=== PATIENT | male | born 1955 | race Caucasian/White ===

== ENCOUNTER 2018-03-13 16:10 | Emergency (ER) | payer BC ==
[2018-03-13 16:36] VITALS: BP 146/100; PULSE 75; TEMP 98.2; BMI 27.8
[2018-03-13] MEDS ORDERED: SODIUM CHLORIDE 0.9% 1000 ML INFUS.BAG IV ONE (16:49)
--- NOTE | 2018-03-13 17:21 | PDOC ---
History of Present Illness - General Chief Complaint: Lightheaded Stated Complaint: S/P DENTAL WORK: LIGHTHEADED Time Seen by Provider: 03/13/18 16:35 History Source: Patient Exam Limitations: No Limitations - History of Present Illness Initial Comments: 03/13/18 17:16 62 yo male smoker her with c/o dental pain facial pain and feeling lightheaded. saw his dentist 4 day ago,was started on zpak for possible apical tooth infection. told to follow up only as needed. pt states he has pressure feeling in his left face. today while taking a shower he felt lightheaded like he was going to faint. drinks 3 coffe/ day. smokes daily. no cp no sob. no vertigo. no other complaints. no leg swelling. Past History - Past Medical History Allergies/Adverse Reactions: Allergies Allergy/AdvReac Type Severity Reaction Status Date / Time No Known Allergies Allergy Verified 03/13/18 16:26 Home Medications: Ambulatory Orders Amoxicillin/Potassium Clav [Augmentin 875-125 Tablet] 1 each PO BID 7 Days #14 tablet 03/13/18 Azithromycin 500 mg PO DAILY 03/13/18 Fluticasone Prop 0.05% Nasal [Flonase -] 1 spray NS DAILY #1 bot 03/13/18 COPD: No Other medical history: RECENT DENTAL PROCEDURE - Suicide/Smoking/Psychosocial Hx Smoking History: Current every day smoker Number of Cigarettes Smoked Daily: 20 Information on smoking cessation initiated: Yes 'Breaking Loose' booklet given: 03/13/18 Hx Alcohol Use: Yes Drug/Substance Use Hx: No Substance Use Type: None Review of Systems - Review of Systems Constitutional: No: Chills, Diaphoresis, Fever HEENTM: Yes: Dental Problems, Other (facial pain). No: Eye Pain Respiratory: Yes: Productive cough. No: Cough Cardiac (ROS): No: Chest Pain, Edema : No: Burning, Dysuria Musculoskeletal: No: Back Pain, Gout Integumentary: No: Bruising, Flushing Neurological: Yes: Other (lightheaded) All Other Systems: Reviewed and Negative *Physical Exam - Vital Signs Last Vital Signs Temp Pulse Resp BP Pulse Ox 98.2 F 75 16 146/100 98 03/13/18 16:22 03/13/18 16:22 03/13/18 16:22 03/13/18 16:22 03/13/18 16:22 - Physical Exam Comments: 03/13/18 17:19 awake alert lungs with faint wheezes at bases bilaterally. heart rrr no mrg abd soft nt nd. ext wwp no edema. HEENT left upper molar with dental freya, no appreciated gum swelling or fluctuance. no appreciated facial swelling. bilat nasal turbinate enlargement. nuero alert oriented x 3. Heart Score/ECG Review #1 General ECG Interpretation: Sinus Rhythm, Normal Rate (68), Normal Intervals, No acute ischemic changes ED Treatment Course - LABORATORY CBC & Chemistry Diagram: 03/13/18 17:20 03/13/18 17:20 - RADIOLOGY Radiology Studies Ordered: Category Date Time Status CHEST PA & LAT [RAD] Stat Radiology 03/13/18 16:49 Taken Medical Decision Making - Medical Decision Making 03/13/18 17:20 62 yo male smoker here with c/o dental pain, concerns for infection, and feeling lightheaded near syncope. differential se of medication, dehydration, anemia, copd, plan labs cbc cxr. will likly change abx to augmentin, recommend smoking cessation and flonase. *DC/Admit/Observation/Transfer Diagnosis at time of Disposition: Dental infection - Discharge Dispostion Condition at time of disposition: Improved - Prescriptions Prescriptions: Amoxicillin/Potassium Clav [Augmentin 875-125 Tablet] 1 each PO BID 7 Days #14 tablet Fluticasone Prop 0.05% Nasal [Flonase -] 1 spray NS DAILY #1 bot - Referrals Referrals: Manpreet Quinn [Primary Care Provider] - - Patient Instructions Additional Instructions: you should start taking augmentin 875 mg twice daily. use flonase one spray each nostril daily. follow up with your dentist. you should also quit smoking. return for any problem or concerns. drink plenty of liquids. - Post Discharge Activity
[2018-03-13 17:59] LABS: BASO % 0.2 % (0-2.0); EOS % 1.1 % (0-4.5); HEMATOCRIT 45.5 % (35.4-49); HEMOGLOBIN 16.1 GM/dl (11.7-16.9); LYMPH % 18.2 % (8-40); MCH 33.4 pg (25.7-33.7); MCHC 35.3 g/dl (32.0-35.9); MEAN CELL VOLUME 94.6 fl (80-96); MEAN PLT VOLUME 9.6 fl (7.5-11.1); MONO % 4.6 % (3.8-10.2); NEUT % 75.9 % (42.8-82.8); PLATELET COUNT 175 K/MM3 (134-434); RBC 4.81 M/mm3 (4.00-5.60); RDW 12.3 % (11.9-15.9); WHITE BLOOD COUNT 7.5 K/mm3 (4.0-10.8)
[2018-03-13 18:17] LABS: ALBUMIN 4.2 g/dl (3.5-5.0); ALK PHOS 78 U/L (32-92); ANION GAP 8 MMOL/L (8-16); BILIRUBIN,TOTAL 0.8 mg/dl (0.2-1.0); BLOOD UREA NITROGEN 16 mg/dl (7-18); CHLORIDE 105 mmol/L (98-107); CO2 24 mmol/L (22-28); GLUCOSE,RANDOM 95 mg/dl (74-106); POTASSIUM 3.7 mmol/L (3.5-5.1); SGOT/AST 14 U/L (10-42); SGPT/ALT 16 U/L (10-40); SODIUM 137 mmol/L (136-145); TOT PROT 6.8 g/dl (6.4-8.3)
[2018-03-13] MEDS ORDERED: AMOX TR/POT CLAV 875MG/125MG TABLETS (FP) ONE (18:40)
[2018-03-13] MEDS ORDERED: AMOX TR/POT CLAV 875MG/125MG TABLETS (FP) PO ONE (18:40)
--- NOTE | 2018-03-14 21:32 | EKG ---
Test Reason : Blood Pressure : / mmHG Vent. Rate : 068 BPM Atrial Rate : 068 BPM P-R Int : 122 ms QRS Dur : 112 ms QT Int : 414 ms P-R-T Axes : 083 062 069 degrees QTc Int : 440 ms NORMAL SINUS RHYTHM WITH SINUS ARRHYTHMIA NORMAL ECG NO PREVIOUS ECGS AVAILABLE Confirmed by RAJAN ALEXIS, SWATI ([id number]) on 03/14/2018 9:32:25 PM Referred By: PASTOR Confirmed By:SWATI TOLENTINO MD
== END 2018-03-13 18:44 | disposition home or self-care (01) ==
LOC: FER 16:10 → SUPCPDRO 16:10 → FER 18:39
PROC: 3E0337Z Introduction of Electrolytic and Water Balance Substance into Peripheral Vein, Percutaneous Approach (ICD-10-PCS; principal; 2018-03-13)
DX: K04.7 Periapical abscess without sinus (principal); F17.210 Nicotine dependence, cigarettes, uncomplicated
CPT/HCPCS: 36415; 71046-TC-FY; 80053; 84484; 85025; 93005; 99283-25; J7030

== ENCOUNTER 2019-01-22 20:22 | Emergency (ER) | payer BC ==
[2019-01-22 20:37] VITALS: BP 167/100; PULSE 78; TEMP 98.2; BMI 27.8
--- NOTE | 2019-01-22 22:26 | PDOC ---
History of Present Illness - General Chief Complaint: Blood Pressure Problem Stated Complaint: HYPERTENSION Time Seen by Provider: 01/22/19 21:31 History Source: Patient Exam Limitations: No Limitations - History of Present Illness Initial Comments: 01/22/19 22:19 63 yo M with a hx of HTN presents to the emergency department with sore throat with burning sensation in the chest for 3 days. Per the patient, he has had GERD in the past with a sour taste throughout the weekend. Endorses no diet change, but endorses multiple coffee cups and beers consumed per day. He states the burning sensation is new compared to his previous GERD episodes which normally localize to the throat. The patient endorses having clammy skin with diaphoresis today but denies radiation of chest pain and denies worsening with exertion. Last cardiac work up 13 years ago. Denies the following: fever, chills , SOB, nausea, vomiting, abdominal pain, dysuria, hematuria, and back pain. Allergies: NKDA Social: Endorses tobacco smoking and alcohol consumption. Meds: Lisinopril Familial hx: ACS both parents in their 70s. Past History - Past Medical History Allergies/Adverse Reactions: Allergies Allergy/AdvReac Type Severity Reaction Status Date / Time No Known Allergies Allergy Verified 01/22/19 20:32 Home Medications: Ambulatory Orders Amoxicillin/Potassium Clav [Augmentin 875-125 Tablet] 1 each PO BID 7 Days #14 tablet 03/13/18 Azithromycin [Zithromax] 500 mg PO DAILY 03/13/18 Fluticasone Prop 0.05% Nasal [Flonase -] 1 spray NS DAILY #1 bot 03/13/18 COPD: No - Suicide/Smoking/Psychosocial Hx Smoking History: Current every day smoker Have you smoked in the past 12 months: Yes Number of Cigarettes Smoked Daily: 20 Information on smoking cessation initiated: Yes 'Breaking Loose' booklet given: 03/13/18 Hx Alcohol Use: Yes Drug/Substance Use Hx: No Substance Use Type: None *Physical Exam - Vital Signs Last Vital Signs Temp Pulse Resp BP Pulse Ox 98.2 F 78 18 167/100 100 01/22/19 20:32 01/22/19 20:32 01/22/19 20:32 01/22/19 20:32 01/22/19 20:32 - Physical Exam Comments: 01/22/19 22:26 within normall imits. ED Treatment Course - LABORATORY CBC & Chemistry Diagram: 01/22/19 22:38 01/22/19 22:38 *DC/Admit/Observation/Transfer Diagnosis at time of Disposition: Throat pain, Chest pain - Discharge Dispostion Disposition: HOME Decision to Admit order: No - Referrals - Patient Instructions Printed Discharge Instructions: DI for High Blood Pressure, DI for Atypical Chest Pain, Heartburn -- Overview, GERD Diet Additional Instructions: You were seen in the emergency department for the evaluation of your chest and throat burning sensation. Please return to the emergency department if you have worsening symptoms. Thank you. - Post Discharge Activity Forms/Work/School Notes: Back to Work
[2019-01-22] MEDS ORDERED: SODIUM CHLORIDE 1,000 ML IV STA (22:27)
[2019-01-22] MEDS ORDERED: FAMOTIDINE 20 MG/50 ML IVPB 20 MG/50 ML MG IVPB ONE ×2 (22:27→22:31)
[2019-01-22] MEDS ORDERED: MAG HYDROX/AL HYDROX/SIMETH -MYLANTA- ORAL SUSPENSION PO ONE (22:27)
[2019-01-22] MEDS ORDERED: ACETAMINOPHEN 1000 MG/100 ML VIAL (NON FORMULARY) IVPB ONE (22:27)
[2019-01-22] MEDS ORDERED: MAG HYDROX/AL HYDROX/SIMETH 30 ML UNIT-DOSE CUP ONE (22:31)
[2019-01-22] MEDS ORDERED: ACETAMINOPHEN INJECTION 100 ML IVPB ONE (22:31)
[2019-01-22 22:46] LABS: BASO % 0.4 % (0-2.0); EOS % 2.4 % (0-4.5); HEMOGLOBIN 15.6 GM/dL (11.7-16.9); LYMPH % 19.5 % (8-40); MCH 32.4 pg (25.7-33.7); MCHC 34.7 g/dl (32.0-35.9); MEAN CELL VOLUME 93.6 fl (80-96); MEAN PLT VOLUME 10.2 fl (7.5-11.1); MONO % 7.1 % (3.8-10.2); NEUT % 70.6 % (42.8-82.8); PLATELET COUNT 153 K/MM3 (134-434); RBC 4.81 M/mm3 (4.00-5.60); RDW 13.4 % (11.9-15.9); WHITE BLOOD COUNT 7.2 K/mm3 (4.0-10.0)
[2019-01-22 23:30] LABS: ALBUMIN 3.5 g/dl (3.4-5.0); BILIRUBIN,TOTAL 0.4 mg/dL (0.2-1); BLOOD UREA NITROGEN 19.5 mg/dL (7-18); CALCIUM 8.5 mg/dL (8.5-10.1); CREATININE 1.1 mg/dL (0.55-1.3); LIPASE 219 U/L (73-393); POTASSIUM 4.2 mmol/L (3.5-5.1); TOT PROT 6.6 g/dl (6.4-8.2)
--- NOTE | 2019-01-23 00:04 | PDOC ---
Documentation entered by Lance Murcia SCRIBE, acting as scribe for Marguerite Beltre MD. Marguerite Beltre MD: This documentation has been prepared by the [employer] [employer], SCRIBE, under my direction and personally reviewed by me in its entirety. I confirm that the documentation accurately reflects all work, treatment, procedures, and medical decision making performed by me. Attending Attestation - Resident Resident Name: Ned Boykin - ED Attending Attestation I have performed the following: I have examined & evaluated the patient, The case was reviewed & discussed with the resident, I agree w/resident's findings & plan, Exceptions are as noted - HPI HPI: 01/22/19 23:15 The patient is a 63 year old male with a significant PMH of HTN who presents to the emergency department for sore throat and chest burning x3 days. The patient states he endorses associated clammy skin with diaphoresis. Patient states these symptoms feel similar to his previous GERD, however, the burning sensation in his chest is new. Patient states he consumes multiple coffee cups and beers per day. Patient denies any new diet changes. The patient denies chest pain, shortness of breath, headache and dizziness. Denies fever, chills, cough, nausea, vomiting, diarrhea and constipation. Denies dysuria, frequency, urgency and hematuria. Allergies: NKDA Social history: Endorses tobacco smoking and alcohol consumption. - Physicial Exam PE: 01/23/19 00:01 63-year-old male in no acute distress. Head normocephalic/atraumatic. Oropharynx exam, no exudates, uvula midline, no edema, mild erythema. Neck supple Lungs clear to auscultation. CVS regular rate and rhythm S1, S2 Abdomen soft, nontender. No flank pain. Skin warm and dry. Neuro alert and oriented 3, ambulatory Psych appropriate - Medical Decision Making 01/23/19 00:02 63 male came in because he was concerned that he was having a heart attack. he' s had 3 days of chest pain and today had burning in his throat and some mild diaphoresis, pressure and systolic blood pressure is 180 and became very worried past medical history of GERD Repeat blood atbmmgsg-[id number]-[id number] to 155/99 67 bpm, no acute ST elevations or depressions first troponin is Negative 01/23/19 00:07 cxr normal mediastinum,no consolidation, no effusions, no infiltrates plan second trop @ 1:30, if negative will d/c home
--- NOTE | 2019-01-23 09:17 | EKG ---
Test Reason : Blood Pressure : / mmHG Vent. Rate : 067 BPM Atrial Rate : 067 BPM P-R Int : 120 ms QRS Dur : 098 ms QT Int : 408 ms P-R-T Axes : 053 019 048 degrees QTc Int : 431 ms NORMAL SINUS RHYTHM POSSIBLE LEFT ATRIAL ENLARGEMENT BORDERLINE ECG WHEN COMPARED WITH ECG OF 13-MAR-2018 17:10, NO SIGNIFICANT CHANGE WAS FOUND Confirmed by CORINA ALEXIS, LINUS ([id number]) on 01/23/2019 9:17:26 AM Referred By: Confirmed By:LINUS ARRIAGA MD
== END 2019-01-23 02:28 | disposition home or self-care (01) ==
LOC: JER 20:22
PROC: 3E033GC Introduction of Other Therapeutic Substance into Peripheral Vein, Percutaneous Approach (ICD-10-PCS; principal; 2019-01-22)
PROC: 3E033NZ Introduction of Analgesics, Hypnotics, Sedatives into Peripheral Vein, Percutaneous Approach (ICD-10-PCS; 2019-01-22)
DX: R12 Heartburn (principal); K21.9 Gastro-esophageal reflux disease without esophagitis
CPT/HCPCS: 36415; 71045-TC-FY; 80053; 82550; 83690; 84484; 85025; 93005; 93010; 99283-25; J0131; J7030

== ENCOUNTER 2019-01-28 07:46 | Emergency (ER) | payer BC, OTHER ==
[2019-01-28 08:01] VITALS: BP 137/89; PULSE 81; TEMP 98; BMI 28.0
--- NOTE | 2019-01-28 08:43 | PDOC ---
History of Present Illness - General Chief Complaint: Head/Neck problem Stated Complaint: LEFT ARM TINGLING/NECK Time Seen by Provider: 01/28/19 08:16 - History of Present Illness Initial Comments: 01/28/19 08:39 CHIEF COMPLAINT: arm tingling HISTORY OF PRESENT ILLNESS: 63 yo M with hx of HTN presents to [facility] with left arm tingling and "not feeling right" s/p fall from ladder 6 days ago. Patient reports that he was seen in this ED one week ago for concerns of chest pain and diaphoresis and "didn't want to come in again right away." He states since the incident he has been "not feeling right" and that his left arm and b/ l legs have been feeling "tingling", which worsened this morning when he woke up. He denies any chest pain, dyspnea, and SOB. No recent travel or sick contacts. PAST MEDICAL HISTORY: Denies past medical history FAMILY HISTORY: Denies SOCIAL HISTORY: Current daily smoker. Denies tobacco, alcohol, illicit drug use. SURGICAL HISTORY: Denies ALLERGIES: No known drug allergies REVIEW OF SYSTEMS General/Constitutional: Denies fever or chills. Denies weakness. HEENT: Denies change in vision. Denies ear pain or discharge. Denies sore throat. Cardiovascular: Denies chest pain or shortness of breath. Respiratory: Denies cough, wheezing, or hemoptysis. Gastrointestinal: Denies nausea, vomiting, diarrhea or constipation. Denies rectal bleeding. Genitourinary: Denies dysuria, frequency, or change in urination. Musculoskeletal: Tingling to left arm and b/l legs. Denies joint or muscle swelling or pain. Denies neck or back pain. Skin: Denies rash or easy bruising. Neurologic: Denies headache, vertigo, loss of consciousness, or loss of sensation. PHYSICAL EXAM General Appearance: Well-appearing, appropriately dressed. No apparent distress , no intoxication. HEENT: EOMI, PERRLA, normal ENT inspection, normal voice, TMs normal, pharynx normal. No conjunctival pallor. No photophobia, scleral icterus. Neck: Supple. Trachea midline. No tenderness, rigidity, carotid bruit, stridor , lymphadenopathy, or thyromegaly. Respiratory/Chest: Lungs CTAB. No shortness of breath, chest tenderness, respiratory distress, accessory muscle use. No crackles, rales, rhonchi, stridor , wheezing, dullness Cardiovascular: RRR. S1, S2. No JVD, murmur, bradycardia, tachycardia. Vascular Pulses: Dorsalis-Pedis (R): 2+, Dorsalis-Pedis (L): 2+ Gastrointestinal/Abdominal: Normal bowel sounds. Abdomen soft, non-distended. No tenderness or rebound tenderness. No organomegaly, pulsatile mass, guarding , hernia, hepatomegaly, splenomegaly. Lymphatic: No adenopathy, tenderness. Musculoskeletal/Extremities: Normal inspection. FROM of all extremities, normal capillary refill. Pelvis Stable. No CVA tenderness. No tenderness to extremities, pedal edema, swelling, erythema or deformity. Integumentary: Appropriate color, dry, warm. No cyanosis, erythema, jaundice or rash Neurologic: library circulation assistant II-XII intact. Fully oriented, alert. Appropriate mood/affect. Motor strength 5/5. No appreciable EOM palsy, facial droop or sensory deficit. A&Ox3, follow commands, respond appropriately CN2-12: conjugate gaze, pupil round, equal and reactive to light. Visual field full to confrontation. EOMI without nystagmus, pursuit is smooth without saccade. Facial sensation and muscle activation intact bilaterally. Hearing intact bilaterally. Palate elevate symmetrically. Shoulder shrug and neck turn full strength. Tongue protrude midline. Motor: UE and LE strength 5/5 throughout bilaterally. Muscle tone and bulk normal. Cerebellar: Rapid-alternating movement with regular rhythm without bradykinesia. Gkkrwa-rd-nfqg and xxcz-oo-vxwl intact bilaterally without dysmetria or overshoot. Gait narrow based. No shuffling. Full hip flexion and knee flexion. Negative Romberg No involuntary movement noted. No pronator drift. No clonus. Past History - Past Medical History Allergies/Adverse Reactions: Allergies Allergy/AdvReac Type Severity Reaction Status Date / Time No Known Allergies Allergy Verified 01/28/19 08:01 Home Medications: Ambulatory Orders Azithromycin [Zithromax] 500 mg PO DAILY 03/13/18 Fluticasone Prop 0.05% Nasal [Flonase -] 1 spray NS DAILY #1 bot 03/13/18 Cyclobenzaprine HCl 10 mg PO HS #10 tablet 01/28/19 Diclofenac Sodium [Voltaren -] 75 mg PO BID #14 tablet. 01/28/19 COPD: No - Suicide/Smoking/Psychosocial Hx Smoking History: Current every day smoker Have you smoked in the past 12 months: Yes Number of Cigarettes Smoked Daily: 20 Information on smoking cessation initiated: No 'Breaking Loose' booklet given: 03/13/18 Hx Alcohol Use: Yes Drug/Substance Use Hx: No Substance Use Type: None *Physical Exam - Vital Signs Last Vital Signs Temp Pulse Resp BP Pulse Ox 98 F 81 18 137/89 99 01/28/19 07:59 01/28/19 07:59 01/28/19 07:59 01/28/19 07:59 01/28/19 07:59 Medical Decision Making - Medical Decision Making 01/28/19 09:28 63 yo M with hx of HTN presents to [email or web address] with left arm tingling and "not feeling right" s/p fall from ladder 6 days ago exam grossly unremarkable. -ekg -head ct ekg NSR, unchanged from prior of 1 week ago. *DC/Admit/Observation/Transfer Diagnosis at time of Disposition: Neuropathy - Discharge Dispostion Disposition: HOME Condition at time of disposition: Stable Decision to Admit order: No - Prescriptions Prescriptions: Cyclobenzaprine HCl 10 mg PO HS #10 tablet Diclofenac Sodium [Voltaren -] 75 mg PO BID #14 tablet.dr - Referrals Referrals: Manpreet Quinn [Primary Care Provider] - Ziggy Bronson MD [Staff Physician] - - Patient Instructions Printed Discharge Instructions: Neuropathic Pain Additional Instructions: Please take medications as prescribed. Follow up with neurology for further evaluation of your symptoms. If you develop any weakness, difficulty speaking, changes in vision, new headache, or any new or worsening symptoms, please return to the ER immediately. - Post Discharge Activity Forms/Work/School Notes: Back to Work
[2019-01-28] MEDS ORDERED: KETOROLAC TROMETHAMINE 30 MG/1 ML VIAL IM ONE (10:04)
[2019-01-28] MEDS ORDERED: KETOROLAC TROMETHAMINE 30 MG/1 ML VIAL ONE (10:15)
--- NOTE | 2019-01-29 16:57 | EKG ---
Test Reason : Blood Pressure : / mmHG Vent. Rate : 073 BPM Atrial Rate : 073 BPM P-R Int : 126 ms QRS Dur : 098 ms QT Int : 380 ms P-R-T Axes : 042 011 063 degrees QTc Int : 418 ms NORMAL SINUS RHYTHM POSSIBLE LEFT ATRIAL ENLARGEMENT BORDERLINE ECG WHEN COMPARED WITH ECG OF 22-JAN-2019 23:30, NO SIGNIFICANT CHANGE WAS FOUND Confirmed by NIGEL PATEL MD ([id number]) on 01/29/2019 4:57:18 PM Referred By: Confirmed By:NIGEL PATEL MD
== END 2019-01-28 10:57 | disposition home or self-care (01) ==
LOC: JER 07:46
PROC: 3E0233Z Introduction of Anti-inflammatory into Muscle, Percutaneous Approach (ICD-10-PCS; principal; 2019-01-28)
DX: G62.9 Polyneuropathy, unspecified (principal); I10 Essential (primary) hypertension
CPT/HCPCS: 70450-TC; 93005; 93010; 99282-25

== ENCOUNTER 2019-03-03 14:43 | Emergency (ER) | payer BC ==
[2019-03-03 14:54] VITALS: TEMP 98.4; BMI 27.8
--- NOTE | 2019-03-03 14:54 | PDOC ---
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 The patient reports he took an asa 81 at 1100 because he was feelling a little weak, but he has been feeling weak for the past 6months. He denies any current symptoms, denies fever. ROS GENERAL/CONSTITUTIONAL: No fever or chills. No weakness. HEAD, EYES, EARS, NOSE AND THROAT: No change in vision. No ear pain or discharge. No sore throat. CARDIOVASCULAR: + chest pain or shortness of breath RESPIRATORY: No cough, wheezing, or hemoptysis. GASTROINTESTINAL: + nausea, vomiting, No diarrhea or constipation. GENITOURINARY: No dysuria, frequency, or change in urination. MUSCULOSKELETAL: No joint or muscle swelling or pain. No neck or back pain. SKIN: No rash PE GENERAL: Awake, alert, and fully oriented, in no acute distress HEAD: No signs of trauma, normocephalic, atraumatic EYES: EOMI, sclera anicteric, conjunctiva clear ENT: oropharynx clear without exudates. Moist mucosa NECK: Normal ROM, supple LUNGS: No distress, speaks full sentences, diffuse expiratory wheeze HEART: Regular rate and rhythm, normal S1 and S2, no murmurs, rubs or gallops, peripheral pulses normal and equal bilaterally. ABDOMEN: Soft, nontender, normoactive bowel sounds. No guarding, no rebound. No masses EXTREMITIES : Normal inspection, Normal range of motion, no edema. No clubbing or cyanosis. NEUROLOGICAL: Cranial nerves II through XII grossly intact. Normal speech, no focal sensorimotor deficits SKIN: Warm, Dry, normal turgor, no rashes or lesions noted MDM DDX including but not limited to: r/o acs consider gerd W/U: - cardiac work up [place]: - ED Course: ekg: nsr at 77bpm labs wnl patient with concerning story and does not feel at baseline plan to tele obs Alie Miguel, PGY2 Emergency Medicine Past History - Past Medical History Allergies/Adverse Reactions: Allergies Allergy/AdvReac Type Severity Reaction Status Date / Time No Known Allergies Allergy Verified 03/03/19 14:46 Home Medications: Ambulatory Orders NK [No Known Home Medication] 03/03/19 COPD: No Other medical history: NECK ARTHRITIS - Psycho Social/Smoking Cessation Hx Smoking History: Current every day smoker Have you smoked in the past 12 months: Yes Number of Cigarettes Smoked Daily: 10 Information on smoking cessation initiated: Yes 'Breaking Loose' booklet given: 03/13/18 Hx Alcohol Use: (nightly) Drug/Substance Use Hx: No Substance Use Type: None *Physical Exam - Vital Signs Last Vital Signs Temp Pulse Resp BP Pulse Ox 98.4 F 78 18 158/87 96 03/03/19 14:43 03/03/19 14:43 03/03/19 14:43 03/03/19 14:43 03/03/19 14:43 ED Treatment Course - LABORATORY CBC & Chemistry Diagram: 03/03/19 15:30 03/03/19 15:30 Discharge - Discharge Information Problems reviewed: Yes Clinical Impression/Diagnosis: Chest pain Condition: Guarded Disposition: HOME - Admission No - Follow up/Referral - Patient Discharge Instructions Patient Printed Discharge Instructions: DI for Chest Pain Additional Instructions: You came to the ED for chest pain, your labwork was initially unremarkable. It was advised that you be admitted for observation and futher workup, however you have refused this care. The risks of leaving AMA are heart attack, cardiac arrest, respiratory distress , stroke, or . You express understanding of these risks and exhibit full capacity however you still desire to leave AMA> - Post Discharge Activity
--- NOTE | 2019-03-03 14:56 | PDOC ---
Attending Attestation - Resident Resident Name: Alie Miguel - HPI HPI: 03/03/19 16:16 Pt presents to the ED complaining of chest pressure that occurred while working today. 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 Symptoms lasted for 15-20 minutes. Patient is now symptom free. States that he has been experiencing vague "weakness" for the last 6 months. - Physicial Exam PE: 03/03/19 16:22 Agree with resident exam. patient is alert and oriented x 3 and in no acute distress. Lungs are clear. Heart regular rate and rhythm without murmurs. - Medical Decision Making 03/03/19 16:34 pt presents to the ED complaining of chest pressure and diaphoresis that began while he was at work. EKG is normal, HEART Score is 3, but given his age and the nature of his symptoms, I have offered him admission. Patient has travel plans in the morning and is contemplating signing out against medical advice. Will reasses when cardiac enzymes are back. 03/03/19 16:34
[2019-03-03] MEDS ORDERED: ASPIRIN 81 MG CHEWABLE TABLETS PO ONE (15:46)
[2019-03-03] MEDS ORDERED: ASPIRIN 81 MG CHEWABLE TABLETS ONE (15:57)
[2019-03-03 16:27] LABS: ALBUMIN 4.1 g/dl (3.4-5.0); BASO % 0.3 % (0-2.0); BILIRUBIN,TOTAL 0.5 mg/dl (0.2-1); CALCIUM 8.7 mg/dl (8.5-10); CREATININE 1.1 mg/dl (0.55-1.3); EOS % 1.3 % (0-4.5); HEMATOCRIT 46.5 % (35.4-49); HEMOGLOBIN 15.6 GM/dl (11.7-16.9); LYMPH % 16.2 % (8-40); MCH 32.3 pg (25.7-33.7); MCHC 33.5 g/dl (32.0-35.9); MEAN CELL VOLUME 96.4 fl (80-96); MEAN PLT VOLUME 9.6 fl (7.5-11.1); MONO % 6.4 % (3.8-10.2); NEUT % 75.8 % (42.8-82.8); PLATELET COUNT 168 K/MM3 (134-434); RBC 4.82 M/mm3 (4.00-5.60); RDW 12.7 % (11.9-15.9); TOT PROT 6.8 g/dl (6.4-8.2); WHITE BLOOD COUNT 7.2 K/mm3 (4.0-10.8)
[2019-03-03 16:32] LABS: INR 1.02 (0.82-1.09); PROTHROMBIN TIME (PATIENT) 11.4 SEC (10.2-13.0)
[2019-03-03 18:31] VITALS: BP 139/91; PULSE 83
--- NOTE | 2019-03-05 08:38 | EKG ---
Test Reason : Blood Pressure : / mmHG Vent. Rate : 077 BPM Atrial Rate : 077 BPM P-R Int : 126 ms QRS Dur : 102 ms QT Int : 390 ms P-R-T Axes : 060 019 061 degrees QTc Int : 441 ms NORMAL SINUS RHYTHM NORMAL ECG WHEN COMPARED WITH ECG OF 28-JAN-2019 09:03, NO SIGNIFICANT CHANGE WAS FOUND Confirmed by Aurea Webb ([id number]) on 03/05/2019 8:38:26 AM Referred By: MD [place] Confirmed By:Aurea Webb
== END 2019-03-03 18:15 | disposition home or self-care (01) ==
LOC: FER 14:43
DX: R07.89 Other chest pain (principal); I10 Essential (primary) hypertension; F17.210 Nicotine dependence, cigarettes, uncomplicated
CPT/HCPCS: 36415; 71045-TC-FY; 80053; 83880; 84484; 85025; 85610; 85730; 93005; 99285-25

== ENCOUNTER 2019-03-07 09:38 | Inpatient (IN) | payer BC, OTHER ==
[2019-03-07 09:52] VITALS: BMI 27.5
--- NOTE | 2019-03-07 11:19 | PDOC ---
History of Present Illness - General Chief Complaint: Chest Pain Stated Complaint: CHEST TIGHTNESS Time Seen by Provider: 03/07/19 10:56 - History of Present Illness Initial Comments: 03/07/19 11:18 This is a 63 year old male with no significant PMH. He presented to the ER with complaints of substernal chest tightness since 7:30AM this morning. The pain was sudden in onset, rated 4/10 in intensity, constant in nature, non-radiating , and alleviated partially by 2 baby aspirins taken around 9AM this morning. He endorses associated diaphoresis, tingling in hands and feet, and fatigue. He denies any fevers, chills, headaches, SOB, coughing, nausea, vomiting, diarrhea , constipation, dysuria, hematuria, or polyuria. He has had 4 similar episodes in the past 5 months. The last episode was 3 days ago. He was seen at [facility], and after a normal EKG, Trops, and CXR he was advised to be admitted for an Echo. The Echo could not be done until Wednesday, and the patient left since he had plans to go to the [facility] with his friends. He has no other past medical history, and is not on any medication at home. He smokes 1ppd, drink 3-4 beers per day, and does not use any drugs. His brother ahd an CO at the age of 50, and both his parents had MIs in their 70s. Past History - Past Medical History Allergies/Adverse Reactions: Allergies Allergy/AdvReac Type Severity Reaction Status Date / Time No Known Allergies Allergy Verified 03/07/19 09:48 Home Medications: Ambulatory Orders NK [No Known Home Medication] 03/03/19 COPD: No - Psycho Social/Smoking Cessation Hx Smoking History: Current every day smoker Have you smoked in the past 12 months: Yes Number of Cigarettes Smoked Daily: 10 Information on smoking cessation initiated: No 'Breaking Loose' booklet given: 03/03/19 Hx Alcohol Use: Yes Drug/Substance Use Hx: No Substance Use Type: None Review of Systems - Review of Systems Comments:: 03/07/19 14:04 Constitutional: Generalized fatigue, no fevers, chills, weakness [employer]: Tingling in hands and feet, no headaches, dizziness, visual changes, motor weakness, sensory deficits Respiratory: Mild SOB, cough, wheezing CVS: Chest pain, no palpitations, light headedness GI: No diarrhea, mild abdominal pain and nausea, constipation ILYA: No dysuria, hematuria, polyruia MSK: No calf pain, tenderness, joint pain *Physical Exam - Vital Signs Last Vital Signs Temp Pulse Resp BP Pulse Ox 98.7 F 82 18 171/107 H 97 03/07/19 09:50 03/07/19 09:50 03/07/19 09:50 03/07/19 09:50 03/07/19 09:50 - Physical Exam Comments: 03/07/19 14:06 General: AOx3, responsive, cooperative Oropharynx:Normal oral mucosa, no lesions noted Eyes: Normal sclera, SHIRLEY, EOM intact Lungs: B/L Clear Heart: Regular rate, regular rhythm, no murmurs rubs or gallops appreciated Abdomen: Soft, no tenderness, non-distended, normoactive bowel sounds, no rebound tenderness Neuro: Motor 5/5 upper and 5/5 lower extremities B/L, sensations intact B/L, CN II-XII intact, no tremors in hands, arms, legs Extremities: No pitting edema, pulses 2+ B/L Heart Score/ECG Review - History History: Moderately suspicious - Electrocardiogram EKG: Normal - Age Age: 45-65 - Risk Factors Risk Factors Heart Score: Yes Hx Hypertension, Yes Smoking History, Yes Positive family hx of cardiac disease Based on the list above the patient has:: >/=3 risk factors or Hx atherosclerotic disease - Troponin Troponin: </= normal limit - Score Heart Score - Total: 4 ED Treatment Course - LABORATORY CBC & Chemistry Diagram: 03/07/19 11:30 03/07/19 11:30 Medical Decision Making - Medical Decision Making 03/07/19 14:08 - Will r/o ACS - CBC/CMP - Trops - EKG - CXR - Nicotine patch 03/07/19 15:13 - Trops negative x1 - EKG NSR RRR - Will admit Tele Obs due to repeated episodes, may need stress test/echo - Nicotine patch ordered Discharge - Discharge Information Problems reviewed: Yes Clinical Impression/Diagnosis: Chest pain - Admission Yes - Follow up/Referral - Patient Discharge Instructions - Post Discharge Activity
[2019-03-07 11:37] LABS: BASO % 0.5 % (0-2.0); EOS % 1.3 % (0-4.5); HEMATOCRIT 47.3 % (35.4-49); HEMOGLOBIN 16.4 GM/dL (11.7-16.9); LYMPH % 20.1 % (8-40); MCH 32.5 pg (25.7-33.7); MCHC 34.7 g/dl (32.0-35.9); MEAN CELL VOLUME 93.8 fl (80-96); MEAN PLT VOLUME 9.3 fl (7.5-11.1); MONO % 7.2 % (3.8-10.2); NEUT % 70.9 % (42.8-82.8); PLATELET COUNT 161 K/MM3 (134-434); RBC 5.05 M/mm3 (4.00-5.60); RDW 12.9 % (11.9-15.9); WHITE BLOOD COUNT 5.3 K/mm3 (4.0-10.0)
[2019-03-07 12:04] LABS: ALBUMIN 3.8 g/dl (3.4-5.0); BILIRUBIN,TOTAL 0.6 mg/dL (0.2-1); BLOOD UREA NITROGEN 17.8 mg/dL (7-18); CALCIUM 9.1 mg/dL (8.5-10.1); POTASSIUM 4.2 mmol/L (3.5-5.1); TOT PROT 6.8 g/dl (6.4-8.2)
--- NOTE | 2019-03-07 12:09 | PDOC ---
Attending Attestation - Resident Resident Name: Jp Seals - ED Attending Attestation I have performed the following: I have examined & evaluated the patient, The case was reviewed & discussed with the resident, I agree w/resident's findings & plan - HPI HPI: 03/07/19 12:01 63-year-old male without diagnosed past medical history, extensive smoking history presents to the emergency department for evaluation of chest pain with episode of diaphoresis this morning. Patient has been having intermittent chest tightness and occasional shortness of breath over the last few months, sought evaluation at [facility] on 03/03 and recommended admission but patient decided to leave, so was scheduled to see his PCP and a coal carrier this week but awoke this morning with 2 episodes overnight of chest tightness with diaphoresis, so he presents for evaluation. At baseline, exercise tolerance varies with occasional dyspnea on exertion, no cough or fevers or chills. reports negative stress test about 12y ago, never had cath. - Physicial Exam PE: 03/07/19 12:09 Vitals as noted, blood pressure elevated at triage Patient is otherwise well-appearing and conversant with full sentences, no acute distress Heart is regular without audible murmur Left base/left mid lung field decreased breath sounds and rhonchi, otherwise clear without wheezing or crackles Abdomen benign No edema - Medical Decision Making 03/07/19 12:09 63-year-old male smoking history presents with intermittent episodes of chest tightness and some dyspnea on exertion in the past, recent visit in the ED recommending admission but declines, resents now for recurrent symptoms. Presentation most concerning for ACS, possible primary pulmonary etiology given smoking history. Labs, EKG Chest x-ray Aspirin Telemetry admission for cardiac evaluation and monitoring Heart Score/ECG Review #1 ECG reviewed & interpreted by me at: 09:33 General ECG Interpretation: Sinus Rhythm, Normal Rate (67), Normal Intervals ( qtc 407), No acute ischemic changes Compared to previous ECG there are: No significant change (c/w 03/03/19)
[2019-03-07 12:37] LABS: INR 0.96 (0.83-1.09); PROTHROMBIN TIME (PATIENT) 11.3 SEC (9.7-13.0)
[2019-03-07 12:39] LABS: ACTIVATED PTT 32.5 SECONDS (25.2-36.5)
--- NOTE | 2019-03-07 12:50 | EKG ---
Test Reason : Blood Pressure : / mmHG Vent. Rate : 067 BPM Atrial Rate : 067 BPM P-R Int : 116 ms QRS Dur : 098 ms QT Int : 386 ms P-R-T Axes : 035 040 071 degrees QTc Int : 407 ms NORMAL SINUS RHYTHM NORMAL ECG WHEN COMPARED WITH ECG OF 03-MAR-2019 14:55, NO SIGNIFICANT CHANGE WAS FOUND Confirmed by Rafa Cooley MD ([id number]) on 03/07/2019 12:50:07 PM Referred By: Confirmed By:Rafa Cooley MD
[2019-03-07] MEDS ORDERED: ACETAMINOPHEN 325 MG TABLET (FP) PO PRN ×2 (13:54→14:12)
--- NOTE | 2019-03-07 14:06 | HP ---
CHIEF COMPLAINT: chest pain PCP: Dr. Kai Case HISTORY OF PRESENT ILLNESS: Patient is a 63 y/o male with no past medical history who presents for chest tightness. Patient reports hes been having this pain on and off for five months. If hes working he states he doesn't notice it. He had the pain on wednesday at [facility] but did not want to stay until wednesday for an echo. Patient reports he had an appointment with a roof fitter for today but had the chest tightness again this morning. He took two baby aspirin and then pain resolved. he states it lasted about 30 minutes. He also felt diaphoretic during the tightness. He does have numbness and tingling in his left arm but it doesnt always associate with chest pain. He has a history of hurting his neck in the past and has had arm numbness and tingling on and off. Patient had a stress test 12 years ago that was negative. Patient denies headache, nausea, vomiting, or shortness of breath. ER course was notable for: (1) (2) (3) Recent Travel: denies PAST MEDICAL HISTORY: denies PAST SURGICAL HISTORY: surgery on his R leg for vein with non healing ulcer Social History: Smokin pack a day for "years" Alcohol: 3-4 beers a day Drugs: denies Family hx; brother with IL, both parents with stents Allergies No Known Allergies Allergy (Verified 03/07/19 09:48) HOME MEDICATIONS: Home Medications Medication Instructions Recorded NK [No Known Home Medication] 03/03/19 REVIEW OF SYSTEMS CONSTITUTIONAL: Absent: fever, chills, diaphoresis, generalized weakness, malaise, loss of appetite, weight change HEENT: Absent: rhinorrhea, nasal congestion, throat pain, throat swelling, difficulty swallowing, mouth swelling, ear pain, eye pain, visual changes CARDIOVASCULAR: chest tightness Absent: chest pain, syncope, palpitations, irregular heart rate, lightheadedness , peripheral edema RESPIRATORY: Absent: cough, shortness of breath, dyspnea with exertion, orthopnea, wheezing, stridor, hemoptysis GASTROINTESTINAL: Absent: abdominal pain, abdominal distension, nausea, vomiting, diarrhea, constipation, melena, hematochezia GENITOURINARY: Absent: dysuria, frequency, urgency, hesitancy, hematuria, flank pain, genital pain MUSCULOSKELETAL: Absent: myalgia, arthralgia, joint swelling, back pain, neck pain SKIN: Absent: rash, itching, pallor HEMATOLOGIC/IMMUNOLOGIC: Absent: easy bleeding, easy bruising, lymphadenopathy, frequent infections ENDOCRINE: Absent: unexplained weight gain, unexplained weight loss, heat intolerance, cold intolerance NEUROLOGIC: Absent: headache, focal weakness or paresthesias, dizziness, unsteady gait, seizure, mental status changes, bladder or bowel incontinence PSYCHIATRIC: Absent: anxiety, depression, suicidal or homicidal ideation, hallucinations. PHYSICAL EXAMINATION Vital Signs - 24 hr 03/07/19 09:50 Temperature 98.7 F Pulse Rate 82 Respiratory 18 Rate Blood Pressure 171/107 H O2 Sat by Pulse 97 Oximetry (%) GENERAL: Awake, alert, and fully oriented, in no acute distress. obese HEAD: Normal with no signs of trauma. EYES: Pupils equal, round and reactive to light, extraocular movements intact, . EARS, NOSE, THROAT: Moist mucous membranes. LUNGS: Breath sounds equal, clear to auscultation bilaterally. No wheezes, and no crackles. No accessory muscle use. HEART: Regular rate and rhythm, normal S1 and S2 without murmur, rub or gallop. ABDOMEN: Soft, nontender, not distended, normoactive bowel sounds, . MUSCULOSKELETAL: Normal range of motion at all joints. LOWER EXTREMITIES: 2+ pulses, warm, well-perfused. No calf tenderness. No peripheral edema. NEUROLOGICAL: Normal gait. SKIN: Warm, dry, normal turgor, no rashes or lesions noted, normal capillary refill. CBC, BMP 03/07/19 11:30 03/07/19 11:30 ASSESSMENT/PLAN: Patient is a 63 y/o male with no past medical history who presents for chest tightness. #atypical chest pain - r/o ACS - troponin negative x1, f/ second - monitor patient on tele - ekg without st elevations or t wave inversions - patient to likely need a stress test either out patient or inpatient - f/u with Dr. Boyd - f/u echo - continue asa 81 mg daiy #HTN - begin norvasc 5 - continue to monitor #nicotine dependence - nicotine patch - discuss methods to quit #FEN - low sodium diet Dispo: monitor on tele, if echo normal patient can likely be DC tomorrow Visit type - Emergency Visit Emergency Visit: Yes ED Registration Date: 03/07/19 Care time: The patient presented to the Emergency Department on the above date and was hospitalized for further evaluation of their emergent condition. - New Patient This patient is new to me today: Yes Date on this admission: 03/07/19 - Critical Care Critical Care patient: No ATTENDING PHYSICIAN STATEMENT I saw and evaluated the patient. I reviewed the resident's note and discussed the case with the resident. I agree with the resident's findings and plan as documented. SUBJECTIVE: OBJECTIVE: ASSESSMENT AND PLAN:
--- NOTE | 2019-03-07 14:08 | PN ---
Teaching Attending Note Name of Resident: Stormy Mendoza ATTENDING PHYSICIAN STATEMENT I saw and evaluated the patient. I reviewed the resident's note and discussed the case with the resident. I agree with the resident's findings and plan as documented. SUBJECTIVE: Patient is a 63M with alcohol dependency (drinks around 3-4 beers per day) 30 pack year smoking hx and strong family hx of CAD presents to ER w/ 2 episodes substernal chest tightness and diaphoresis since Wednesday. Patient was at [facility]'s ED. this Wednesday but did not want to stay for echo, so was discharged, was going to see a plastics spreading machine operator today but developed chest pain with minimal exertion again , came to ED,for further care. OBJECTIVE: Vital Signs Temperature 98.7 F 03/07/19 09:50 Pulse Rate 82 03/07/19 09:50 Respiratory Rate 18 03/07/19 09:50 Blood Pressure 171/107 H 03/07/19 09:50 O2 Sat by Pulse Oximetry (%) 97 03/07/19 09:50 GENERAL: The patient is awake, alert, and fully oriented, in no acute distress. HEAD: Normal with no signs of trauma. EYES: PERRL, extraocular movements intact, sclera anicteric, conjunctiva clear. ENT: Ears normal, oropharynx clear without exudates, moist mucous membranes. NECK: Trachea midline, full range of motion, supple. LUNGS: Breath sounds equal, clear to auscultation bilaterally, no wheezes, no crackles, no accessory muscle use. HEART: Regular rate and rhythm, S1, S2 without murmur, rub or gallop. ABDOMEN: Soft, NT,ND, normoactive bowel sounds, no guarding, no rebound, no hepatosplenomegaly, no masses. EXTREMITIES: 2+ pulses, warm, well-perfused, no edema. NEUROLOGICAL: Cranial nerves II through XII grossly intact. Normal speech, gait not observed. PSYCH: Normal mood, normal affect. SKIN: Warm, dry, normal turgor, skin is flushed neck area CBCD WBC 5.3 K/mm3 (4.0-10.0) 03/07/19 11:30 RBC 5.05 M/mm3 (4.00-5.60) 03/07/19 11:30 Hgb 16.4 GM/dL (11.7-16.9) 03/07/19 11:30 Hct 47.3 % (35.4-49) 03/07/19 11:30 MCV 93.8 fl (80-96) 03/07/19 11:30 MCHC 34.7 g/dl (32.0-35.9) 03/07/19 11:30 RDW 12.9 % (11.9-15.9) 03/07/19 11:30 Plt Count 161 K/MM3 (134-434) 03/07/19 11:30 MPV 9.3 fl (7.5-11.1) 03/07/19 11:30 CMP Sodium 140 mmol/L (136-145) 03/07/19 11:30 Potassium 4.2 mmol/L (3.5-5.1) 03/07/19 11:30 Chloride 108 mmol/L (98-107) H 03/07/19 11:30 Carbon Dioxide 28 mmol/L (21-32) 03/07/19 11:30 Anion Gap 4 MMOL/L (8-16) L 03/07/19 11:30 BUN 17.8 mg/dL (7-18) 03/07/19 11:30 Creatinine 1.0 mg/dL (0.55-1.3) 03/07/19 11:30 Random Glucose 104 mg/dL (74-106) 03/07/19 11:30 Calcium 9.1 mg/dL (8.5-10.1) 03/07/19 11:30 Total Bilirubin 0.6 mg/dL (0.2-1) 03/07/19 11:30 AST 9 U/L (15-37) L 03/07/19 11:30 ALT 20 U/L (13-61) 03/07/19 11:30 Alkaline Phosphatase 88 U/L (45-117) 03/07/19 11:30 Total Protein 6.8 g/dl (6.4-8.2) 03/07/19 11:30 Albumin 3.8 g/dl (3.4-5.0) 03/07/19 11:30 CARDIAC ENZYMES Creatine Kinase 79 U/L (26-308) 03/07/19 11:30 Troponin I < 0.02 ng/ml (0.00-0.05) 03/07/19 11:30 Current Medications Generic Name Dose Route Start Last Admin Trade Name Freq PRN Reason Stop Dose Admin Acetaminophen 650 mg 03/07/19 13:54 Tylenol - PO Q4H PRN PAIN 4-6 Enoxaparin Sodium 40 mg 03/08/19 10:00 Lovenox - SQ DAILY [facility] Nicotine 14 mg 03/08/19 10:00 Nicoderm Patch - TD DAILY [facility] Home Medications Medication Instructions Recorded NK [No Known Home Medication] 03/03/19 Laboratory Tests 03/07/19 11:30 Creatine Kinase 79 Troponin I < 0.02 Current Medications Generic Name Dose Route Start Last Admin Trade Name Mohanq PRN Reason Stop Dose Admin Acetaminophen 650 mg 03/07/19 14:12 Tylenol - PO Q6H PRN PAIN 4-6 Amlodipine Besylate 5 mg 03/07/19 15:30 03/07/19 17:35 Norvasc - PO 5 mg DAILY [facility] Administration Aspirin 81 mg 03/08/19 10:00 Ecotrin - PO DAILY [facility] Atorvastatin Calcium 40 mg 03/07/19 22:00 Lipitor - PO HS [facility]A Heparin Sodium (Porcine) 1,000 unit 03/07/19 15:44 Heparin - IVPUSH PRN PRN Heparin Heparin Sodium (Porcine) 5,000 unit 03/07/19 15:44 Heparin - IVPUSH PRN PRN Heparin Heparin Sodium (Porcine) 25, 500 mls @ 20 mls/hr 03/07/19 15:45 03/07/19 17: 36 000 unit/ Sodium Chloride IV 1,000 unit/hr TITR [facility]GIN[facility] 20 mls/hr Administration Protocol 1,000 UNIT/HR Nicotine 14 mg 03/08/19 10:00 Nicoderm Patch - TD DAILY [facility] NSR with no acute ST changesUnstable angina ASSESSMENT AND PLAN: Patient is a 63 y/o male with no past medical history who presents for chest tightness. #Unstable angina r/o ACS, 1st troponin negative on Heparin drip, admit to tele , patient will be transfererred to [place] in am under care of Dr.Joe Villeda. trend troponin. goign for cath, on heparin drip , echo ordered #HTN Uncontrolled : begin norvasc 5, will give extra 5mg norvasc now. #nicotine dependence: nicotine patch monitor on tele Plan for transfer to [place] tomorrow AM.
[2019-03-07] MEDS ORDERED: amLODIPine BESYLATE 5 MG TABLET (FP) PO SCH (15:30)
[2019-03-07] MEDS ORDERED: HEPARIN NA (PORCINE) 5,000 UNITS/ML 1ML VIAL IVPUSH PRN ×2 (15:44)
--- NOTE | 2019-03-07 15:44 | CON.CARD ---
Consult Consult Specialty:: Cardiology Referred by:: Dr. Robert Reason for Consultation:: chest pain - History of Present Illness Chief Complaint: chest pain and diaphoresis History of Present Illness: 63M with 30 pack year smoking hx and strong family hx CAD presents to ER w/ 2 episodes substernal chest tightness and diaphoresis since Wednesday. Wednesday, this occurred w/ minimal exertion. Went to [place] and left prior to echo. 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 This AM awoke with 20minutes substernal chest pressure and "cold sweat". Denies N/V/abdominal pain. Denies SOB. + exertional fatigue over last 4-5 months and also endorses similar mild SSCP w / exertion over last 4 months. 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: No: Alzheimer's, CVA, Dementia, Migraine, Multiple Sclerosis, Peripheral Neuropathy, Parkinson's, Seizure, Syncope, TIA, Vertigo, Other Cardio/Vascular: No: AFIB, Aneurysm, Aortic Insufficiency, Aortic Stenosis, CAD , CHF, Deep Vein Thrombosis, HTN, Hyperlipdemia, SC, Mitral Insufficiency, Mitral Stenosis, Murmur, Pulmonary Hypertension, Other Pulmonary: No: Asthma, Bronchitis, Cancer, COPD, O2 Dependent, Pneumonia, Previously Intubated, Pulmonary Embolus, Pulmonary Fibrosis, Sleep Apnea, Other Gastrointestinal: No: Ascites, Cancer, Constipation, Crohn's Disease, Diverticulitis, Diverticulosis, Esophageal Varices, Gastritis, GERD, GI Bleed, Hemorrhoids, Hiatal Hernia, Inflamatory Bowel Disease, Irritable Bowel Disease, Pancreatitis, Peptic Ulcer Disease, Ulcerative Colitis, Other Hepatobiliary: No: Cirrhosis, Cholelithiasis, Cholecystitis, Choledocholithiasis , Hepatitis A, Hepatitis B, Hepatitis C, Other Renal/: No: Renal Failure, Renal Inusuff, BPH, Cancer, Hematuria, Hemodialysis , Neurogenic Bladder, Renal Calculi, UTI, Other Heme/Onc: No: Anemia, B12 Deficiency, Bleeding Disorder, Cancer, Current Chemotherapy, Current Radiation Therapy, Hemochromatosis, Hypercoaguable State, Myeloproliferative Synd, Sickle Cell Disease, Sickle Cell Trait, Thrombocytopenia, Other Infectious Disease: No: AIDS, C-Diff, Herpes Zoster, HIV, MRSA, STD's, Tuberculosis, VREF, Other Psych: No: Addictions, Anxiety, Bipolar, Depression, Panic, Psychosis, Schizophrenia, Other Musculoskeletal: No: Bursitis, Chronic low back pain, Hemiparesis, Hemiplegia, Osteoarthritis, Paraplegia, Other Rheumatology: No: Fibromyalgia, Gout, Lupus, Rheumatoid Arthritis, Sarcoidosis, Vasculitis, Other ENT: No: Allergic Rhinitis, Sinusitis, Other Endocrine: No: Leavenworth's Disease, Cook's Disease, Diabetes Insipidus, Diabetes Mellitus, Hyperparathyroidism, Hyperthyroidism, Hypothyroidism, Osteopenia, SIADH, Other Dermatology: No: Basal Cell, Cellulitis, Eczema, Melanoma, Psoriasis, Squamous Cell, Other - Past Surgical History Past Surgical History: No: None, AAA Repair, AICD, Amputation, Appendectomy, Arthrosocopy, AV Fistula/Graft, Bariatric Surgery, Breast Biopsy, Bypass, CABG, Carotid Endarterectomy, Cataract Removal, Cholecystectomy, Colectomy, Colonoscopy, Colostomy, Craniotomy, , Cystectomy, Hernia Repair, Hysterectomy, Ileal Conduit, Ileosotomy, Joint Replacement, Kidney Transplant, Laminectomy, Liver Transplant, Mastectomy, Nephrectomy, Oopherectomy, Orchiectomy, Permanent Pacemaker, Prostatectomy, Splenectomy, Stent, Thoracotomy , TURP, Tonsillectomy, Tubal Ligation, Upper Endoscopy, Valve Replacement, Vasectomy, Vein Stripping/Ligation - Alcohol/Substance Use Hx Alcohol Use: Yes - Smoking History Smoking history: Current every day smoker Have you smoked in the past 12 months: Yes Aproximately how many cigarettes per day: 10 - Social History Usual Living Arrangement: With Child Place of : [facility] History of Recent Travel: No Home Medications - Allergies Allergies/Adverse Reactions: Allergies Allergy/AdvReac Type Severity Reaction Status Date / Time No Known Allergies Allergy Verified 03/07/19 09:48 - Home Medications Home Medications: Ambulatory Orders NK [No Known Home Medication] 03/03/19 Family Medical History Family Hx Cancer: Mother, Father, Brother (CAD) Review of Systems - Review of Systems Cardiovascular: reports: Chest Pain, Shortness of Breath Respiratory: reports: Exercise Intolerance Gastrointestinal: denies: No Symptoms, Abdominal Pain, Bloating, Constipation, Diarrhea, Dysphagia, Indigestion, Melena, Nausea, Rectal Bleeding, Vomiting, Vomiting Blood, Other Genitourinary: denies: No Symptoms, Burning, Discharge, Dysuria, Flank Pain, Frequency, Hematuria, Incontinence, Lesions, Menses, Pain, Testicular Mass, Testicular Pain, Testicular Swelling, Urgency, Vaginal Bleeding, Other Breasts: denies: No Symptoms Reported, See HPI, Breast Implants, Discharge from Nipple, Lumps, Pain, Skin Changes, Other Musculoskeletal: denies: No Symptoms, Back Pain, Crepitus, Decreased ROM, Extremity Pain, Joint Pain, Joint Swelling, Muscle Pain, Muscle Cramps, Muscle Weakness, Other Integumentary: denies: No Symptoms, Blister, Bruising, Change in Color, Eczema, Erythema, Incision, Lesions, Lump, Pallor, Pruritis, Rash, Wound, Other Neurological: denies: No Symptoms, Change in LOC, Change in Speech, Confusion, Dizziness, Headache, Incoordination, Numbness, Parasthesia, Pre-Existing Deficit , Seizure, Syncope, Tremors, Unsteady Gait, Weakness, Other Endocrine: denies: No Symptoms, Excessive Sweating, Flushing, Increased Hunger, Increased Thirst, Intolerance to Cold, Intolerance to Heat, Unexplained Weight Gain, Unexplained Weight Loss, Other Hematology/Lymphatic: denies: No Symptoms, Easily Bruised, Excessive Bleeding, Swollen Glands, Other Psychiatric: denies: No Symptoms, Altered Sleep Pattern, Anxiety, Depression, Hallucinations, Panic, Paranoia, Suicidal, Other - Risk Factors Known Risk Factors: Yes: Family History, Smoking Vital Signs: Vital Signs Temperature 98.7 F 03/07/19 09:50 Pulse Rate 78 03/07/19 14:00 Respiratory Rate 18 03/07/19 14:00 Blood Pressure 141/73 03/07/19 14:00 O2 Sat by Pulse Oximetry (%) 98 03/07/19 14:00 Constitutional: Yes: No Distress Eyes: Yes: EOM Intact HENT: Yes: Normocephalic Neck: Yes: Trachea Midline Respiratory: Yes: CTA Bilaterally Gastrointestinal: Yes: Soft (NT, no rebound or guarding) Cardiovascular: Yes: Regular Rate and Rhythm JVD: No Carotid Bruit: No PMI: Non-Displaced Heart Sounds: Yes: S1, S2 (rrr, no m/r/g) Edema: No Peripheral Pulses WNL: Yes Peripheral Pulses: 2+ Left Carotid, 2+ Right Carotid, 2+ Left Doralis Pedis, 2+ Right Dorsalis Pedis Integumentary: Yes: WNL Neurological: Yes: Alert, Oriented ...Motor Strength: WNL Psychiatric: Yes: WNL - Other Data Labs, Other Data: CBC, BMP 03/07/19 11:30 03/07/19 11:30 INR, PTT INR 0.96 (0.83-1.09) 03/07/19 11:30 Troponin, BNP 03/07/19 11:30 Troponin I < 0.02 Troponin, BNP 03/07/19 11:30 Troponin I < 0.02 Laboratory Tests 03/07/19 03/07/19 03/07/19 11:30 11:30 11:30 WBC 5.3 Hgb 16.4 Plt Count 161 INR 0.96 Sodium Potassium Creatine Kinase 79 Troponin I < 0.02 03/07/19 11:30 WBC Hgb Plt Count INR Sodium 140 Potassium 4.2 Creatine Kinase Troponin I NSR with no acute ST changes Echo: Pending Imaging - Results Chest X-ray: Report Reviewed, Image Reviewed (hyperinflation c/w COPD) EKG: Image Reviewed Assessment/Plan IMP: Unstable angina Heavy smoker w/ suspected COPD Strong family hx CAD Chronic moderate HTN suspected REC: 1. TELE 2. Echo for EF assessment 3. ASA 81mg daily 4. Start UFH gtts while enzymes trend: would obtain 3 sets q4-6h apart 5. Serial ECGs. 6. Given strong suspicion for obstructive CAD (high pre test prob), would skip stress test and proceed directly to cath for definitive assessment of cors. D/W patient. Plan for transfer to [place] tomorrow AM.
[2019-03-07] MEDS ORDERED: HEPARIN - 25,000 UNIT in SODIUM CHLORIDE 495 ML IV SCH (15:45)
[2019-03-07] MEDS ORDERED: amLODIPine BESYLATE 5 MG TABLET (FP) ONE (17:34)
[2019-03-07] MEDS ORDERED: HEPARIN INFUSION - 25,000 UNITS/500 ML INFUS.BAG IVPB ONE (17:34)
[2019-03-07 18:24] LABS: LIPASE 190 U/L (73-393)
[2019-03-07 21:55] VITALS: BP 155/98; PULSE 86; TEMP 98.5
[2019-03-07] MEDS ORDERED: ATORVASTATIN CA 40 MG TABLET (FP) PO SCH (22:00)
[2019-03-07] MEDS ORDERED: amLODIPine BESYLATE 5 MG TABLET (FP) PO ONE (22:11)
[2019-03-08] MEDS ORDERED: NICOTINE 14 MG/24 HOURS TOPICAL PATCH TD SCH (10:00)
[2019-03-08] MEDS ORDERED: ASPIRIN COATED 81 MG TABLET.EC PO SCH (10:00)
[2019-03-08] MEDS ORDERED: ENOXAPARIN NA (PORCINE) 40 MG/0.4 ML DISP.SYRIN SQ SCH (10:00)
== END 2019-03-07 21:54 | disposition short-term general hospital (02) | DRG 311 ==
LOC: JER 09:38 → JERBED 13:06 → OBSVTOIN 16:07
PROVIDERS: ADMIT Internal Medicine; ATTEND Internal Medicine
DX: I20.0 Unstable angina (principal); R07.89 Other chest pain; F17.210 Nicotine dependence, cigarettes, uncomplicated; I10 Essential (primary) hypertension
CPT/HCPCS: 36415; 71046-TC-FY; 80053; 82550; 83690; 84484; 85025; 85610; 85730; 93005; 93010; 99285-25; G0378; J1644

== ENCOUNTER 2020-09-02 21:59 | Emergency (ER) | payer BC ==
[2020-09-02 22:07] VITALS: BP 134/73; PULSE 78; TEMP 97.9; BMI 26.6
[2020-09-02] MEDS ORDERED: FAMOTIDINE 20 MG/50 ML IVPB 20 MG/50 ML MG IVPB ONE (23:15)
[2020-09-02] MEDS ORDERED: ALBUTEROL SO4 HFA INHALER IH ONE (23:48)
[2020-09-03] MEDS ORDERED: FAMOTIDINE 20 MG/50 ML IVPB 20 MG/50 ML MG IVPB ONE (00:07)
[2020-09-03 00:18] LABS: BASO % 0.3 % (0-2.0); EOS % 2.3 % (0-4.5); HEMATOCRIT 42.8 % (35.4-49); HEMOGLOBIN 14.9 GM/dL (11.7-16.9); LYMPH % 23.7 % (8-40); MCH 32.7 pg (25.7-33.7); MCHC 34.9 g/dl (32.0-35.9); MEAN CELL VOLUME 93.7 fl (80-96); MONO % 7.9 % (3.8-10.2); NEUT % 65.8 % (42.8-82.8); PLATELET COUNT 158 K/MM3 (134-434); RBC 4.56 M/mm3 (4.00-5.60); RDW 12.9 % (11.9-15.9); WHITE BLOOD COUNT 7.6 K/mm3 (4.0-10.0)
[2020-09-03 00:26] LABS: INR 0.99 (0.83-1.09); PROTHROMBIN TIME (PATIENT) 12.2 SEC (9.7-13.0)
[2020-09-03 00:28] LABS: ACTIVATED PTT 28.9 SECONDS (25.2-36.5)
[2020-09-03] MEDS ORDERED: ALBUTEROL SO4 HFA INHALER IH ONE (00:28)
[2020-09-03 01:05] LABS: CHLORIDE 104 mmol/L (98-107); SODIUM 140 mmol/L (136-145)
[2020-09-03 01:07] LABS: CALCIUM 9.3 mg/dL (8.5-10.1)
[2020-09-03 01:08] LABS: ALBUMIN 3.9 g/dl (3.4-5.0); ANION GAP 5 MMOL/L (8-16); BLOOD UREA NITROGEN 22.6 mg/dL (7-18); CO2 31 mmol/L (21-32); GLUCOSE,RANDOM 107 mg/dL (74-106); LIPASE 175 U/L (73-393); MAGNESIUM 2.1 mg/dL (1.8-2.4)
[2020-09-03 01:10] LABS: CREATININE 1.1 mg/dL (0.55-1.3); SGPT/ALT 23 U/L (13-61)
[2020-09-03 01:11] LABS: SGOT/AST 11 U/L (15-37)
[2020-09-03 01:12] LABS: BILIRUBIN,TOTAL 0.8 mg/dL (0.2-1); TOT PROT 6.6 g/dl (6.4-8.2)
[2020-09-03 01:13] LABS: ALK PHOS 76 U/L (45-117)
[2020-09-03 01:16] LABS: N-TERMINAL BNP 48.4 pg/ml (5-125)
== END 2020-09-03 02:25 | disposition home or self-care (01) ==
LOC: JER 21:59
PROC: 3E0333Z Introduction of Anti-inflammatory into Peripheral Vein, Percutaneous Approach (ICD-10-PCS; principal; 2020-09-02)
PROC: 3E033GC Introduction of Other Therapeutic Substance into Peripheral Vein, Percutaneous Approach (ICD-10-PCS; 2020-09-02)
PROC: 3E033GC Introduction of Other Therapeutic Substance into Peripheral Vein, Percutaneous Approach (ICD-10-PCS; 2020-09-02)
PROC: 3E033GC Introduction of Other Therapeutic Substance into Peripheral Vein, Percutaneous Approach (ICD-10-PCS; 2020-09-02)
PROC: 3E0233Z Introduction of Anti-inflammatory into Muscle, Percutaneous Approach (ICD-10-PCS; 2020-09-02)
DX: J09.X1 Influenza due to identified novel influenza A virus with pneumonia (principal)
CPT/HCPCS: 36415; 71046-TC-FY; 76705-TC; 76775-TC; 80053; 82550; 83690; 83735; 83880; 84100; 84484; 85025; 85610; 85730; 87804; 93005; 93010; 99284-25; C9803; U0003; U0005

== ENCOUNTER 2021-03-27 14:21 | Observation (INO) | payer BC ==
[2021-03-27] MEDS ORDERED: dilTIAZem HCL 125 MG/25 ML - 25 ML VIAL ONE ×2 (14:41→14:52)
[2021-03-27 14:46] VITALS: BMI 27.8
[2021-03-27] MEDS ORDERED: dilTIAZem HCL 50 MG/10 ML - 10 ML VIAL IVPUSH ONE (14:47)
[2021-03-27] MEDS ORDERED: SODIUM CHLORIDE 0.9% 500 ML INFUS.BAG IV ONE (15:13)
[2021-03-27] MEDS ORDERED: dilTIAZem HCL 30 MG TABLET PO ONE (15:15)
[2021-03-27] MEDS ORDERED: dilTIAZem HCL 30 MG TABLET ONE (15:31)
[2021-03-27 15:37] LABS: BASO % 0.2 % (0-2.0); EOS % 1.4 % (0-4.5); HEMATOCRIT 43.1 % (35.4-49); HEMOGLOBIN 15.6 GM/dL (11.7-16.9); LYMPH % 15.3 % (8-40); MCHC 36.1 g/dl (32.0-35.9); MEAN CELL VOLUME 91.3 fl (80-96); MEAN PLT VOLUME 10.3 fl (7.5-11.1); MONO % 6.9 % (3.8-10.2); NEUT % 76.2 % (42.8-82.8); PLATELET COUNT 183 10^3/uL (134-434); RBC 4.73 M/mm3 (4.00-5.60); RDW 13.2 % (11.9-15.9); WHITE BLOOD COUNT 9.8 K/mm3 (4.0-10.0)
[2021-03-27 15:44] LABS: INR 0.97 (0.83-1.09); PROTHROMBIN TIME (PATIENT) 10.9 SEC (9.7-13.0)
[2021-03-27 15:47] LABS: ACTIVATED PTT 29.5 SECONDS (25.2-36.5)
[2021-03-27 15:59] LABS: CHLORIDE 105 mmol/L (98-107); SODIUM 139 mmol/L (136-145)
[2021-03-27 16:01] LABS: CALCIUM 9.3 mg/dL (8.5-10.1)
[2021-03-27 16:02] LABS: ALBUMIN 3.9 g/dl (3.4-5.0); ANION GAP 7 MMOL/L (8-16); BLOOD UREA NITROGEN 19.4 mg/dL (7-18); CO2 27 mmol/L (21-32); GLUCOSE,RANDOM 110 mg/dL (74-106)
[2021-03-27 16:05] LABS: BILIRUBIN,TOTAL 0.4 mg/dL (0.2-1); CREATININE 1.1 mg/dL (0.55-1.3); SGOT/AST 17 U/L (15-37); SGPT/ALT 32 U/L (13-61)
[2021-03-27 16:06] LABS: TOT PROT 7.1 g/dl (6.4-8.2)
[2021-03-27 16:08] LABS: ALK PHOS 84 U/L (45-117)
[2021-03-27] MEDS ORDERED: POTASSIUM CHLORIDE ORAL LIQUID 20 MEQ/15 ML PO ONE (16:12)
[2021-03-27] MEDS ORDERED: POTASSIUM CHLORIDE ORAL LIQUID 20 MEQ/15 ML ONE (16:30)
[2021-03-27] MEDS ORDERED: METOPROLOL TARTRATE 5 MG/5 ML VIAL IVPUSH ONE (17:08)
[2021-03-27 18:42] LABS: MAGNESIUM 2.5 mg/dL (1.8-2.4)
[2021-03-27] MEDS ORDERED: ATORVASTATIN CA 20 MG TABLET (FP) PO SCH (22:00)
[2021-03-27] MEDS: APIXABAN 5 MG TABLET PO SCH (22:09)
[2021-03-28 07:20] LABS: BASO % 1.5 % (0-2.0); EOS % 1.8 % (0-4.5); LYMPH % 24.2 % (8-40); MCHC 35.9 g/dl (32.0-35.9); MEAN CELL VOLUME 91.8 fl (80-96); MEAN PLT VOLUME 9.4 fl (7.5-11.1); MONO % 6.8 % (3.8-10.2); NEUT % 65.7 % (42.8-82.8); PLATELET COUNT 143 10^3/uL (134-434); RBC 4.25 M/mm3 (4.00-5.60); WHITE BLOOD COUNT 6.1 K/mm3 (4.0-10.0)
[2021-03-28 08:01] LABS: ALBUMIN 3.2 g/dl (3.4-5.0); BLOOD UREA NITROGEN 20.3 mg/dL (7-18); CALCIUM 8.5 mg/dL (8.5-10.1)
[2021-03-28 08:03] LABS: MAGNESIUM 2.3 mg/dL (1.8-2.4)
[2021-03-28 08:05] LABS: PHOSPHOROUS 2.3 mg/dL (2.5-4.9)
[2021-03-28 08:06] LABS: BILIRUBIN,TOTAL 1.2 mg/dL (0.2-1); TOT PROT 5.9 g/dl (6.4-8.2)
[2021-03-28 09:01] VITALS: BP 105/73; PULSE 70; TEMP 98.6
[2021-03-28] MEDS: APIXABAN 5 MG TABLET PO SCH (09:01)
[2021-03-28] MEDS ORDERED: LISINOPRIL 20 MG TABLET PO SCH (10:00)
== END 2021-03-28 16:50 | disposition home or self-care (01) ==
LOC: JER 14:21 → INTOOBSV 14:48 → UNDOADMOB 14:48 → JERBED 14:48 → J4W 21:55 → JERBED 03-28 08:42
PROVIDERS: ADMIT Internal Medicine; ATTEND Nurse Practitioner Acute Care
PROC: 3E033GC Introduction of Other Therapeutic Substance into Peripheral Vein, Percutaneous Approach (ICD-10-PCS; principal; 2021-03-28)
PROC: 3E0337Z Introduction of Electrolytic and Water Balance Substance into Peripheral Vein, Percutaneous Approach (ICD-10-PCS; 2021-03-28)
DX: I48.91 Unspecified atrial fibrillation (principal); I10 Essential (primary) hypertension; E78.5 Hyperlipidemia, unspecified; I25.10 Atherosclerotic heart disease of native coronary artery without angina pectoris; I11.9 Hypertensive heart disease without heart failure; F17.210 Nicotine dependence, cigarettes, uncomplicated; Z29.9 Encounter for prophylactic measures, unspecified
CPT/HCPCS: 36415; 71045-TC-FY; 80053; 82550; 82553; 83735; 84100; 84443; 84484; 85025; 85610; 85730; 93005; 93010; 93306-TC; 96374; 96375; 99285-25; C9803; G0378; U0003; U0005

== ENCOUNTER 2021-04-06 08:44 | Emergency (ER) | payer BC ==
[2021-04-06 08:53] VITALS: TEMP 97.8; BMI 27.8
[2021-04-06 10:42] LABS: BASO % 0.3 % (0-2.0); EOS % 1.3 % (0-4.5); HEMATOCRIT 40.9 % (35.4-49); HEMOGLOBIN 14.2 GM/dL (11.7-16.9); LYMPH % 21.5 % (8-40); MCH 32.9 pg (25.7-33.7); MCHC 34.8 g/dl (32.0-35.9); MEAN CELL VOLUME 94.5 fl (80-96); MEAN PLT VOLUME 10.4 fl (7.5-11.1); MONO % 7.6 % (3.8-10.2); NEUT % 69.3 % (42.8-82.8); PLATELET COUNT 140 10^3/uL (134-434); RBC 4.33 M/mm3 (4.00-5.60); RDW 13.1 % (11.9-15.9); WHITE BLOOD COUNT 5.6 K/mm3 (4.0-10.0)
[2021-04-06 10:56] LABS: CHLORIDE 111 mmol/L (98-107); SODIUM 143 mmol/L (136-145)
[2021-04-06 10:58] LABS: CALCIUM 8.5 mg/dL (8.5-10.1)
[2021-04-06 10:59] LABS: ALBUMIN 3.5 g/dl (3.4-5.0); ANION GAP 3 MMOL/L (8-16); BLOOD UREA NITROGEN 18.9 mg/dL (7-18); CO2 29 mmol/L (21-32); GLUCOSE,RANDOM 86 mg/dL (74-106); MAGNESIUM 2.4 mg/dL (1.8-2.4)
[2021-04-06 11:02] LABS: SGOT/AST 10 U/L (15-37); SGPT/ALT 21 U/L (13-61)
[2021-04-06 11:03] LABS: INR 1.18 (0.83-1.09); PROTHROMBIN TIME (PATIENT) 13.8 SEC (9.7-13.0); TOT PROT 6.4 g/dl (6.4-8.2)
[2021-04-06 11:04] LABS: BILIRUBIN,TOTAL 0.4 mg/dL (0.2-1)
[2021-04-06 11:05] LABS: ALK PHOS 72 U/L (45-117)
[2021-04-06 11:06] LABS: ACTIVATED PTT 33.7 SECONDS (25.2-36.5)
[2021-04-06 14:01] VITALS: BP 132/78; PULSE 58
== END 2021-04-06 14:01 | disposition home or self-care (01) ==
LOC: JER 08:44
DX: R07.9 Chest pain, unspecified (principal); I10 Essential (primary) hypertension; E78.5 Hyperlipidemia, unspecified
CPT/HCPCS: 36415; 71045-TC-FY; 80053; 82550; 83735; 84484; 85025; 85610; 85730; 93005; 93010; 99284-25; C9803; U0003; U0005

== ENCOUNTER 2021-08-29 14:15 | Emergency (ER) | payer OTHER, BC ==
[2021-08-29 14:30] VITALS: BP 135/75; PULSE 66; TEMP 98; BMI 27.8
== END 2021-08-29 16:30 | disposition home or self-care (01) ==
LOC: JER 14:15
DX: S09.90XA Unspecified injury of head, initial encounter (principal); W22.8XXA Striking against or struck by other objects, initial encounter
CPT/HCPCS: 70450-TC; 99284-25

== ENCOUNTER 2021-09-23 21:52 | Emergency (ER) | payer BC, OTHER ==
[2021-09-23 22:01] VITALS: TEMP 97.6; BMI 28.5
[2021-09-23 23:33] VITALS: BP 154/79; PULSE 65
== END 2021-09-23 23:41 | disposition home or self-care (01) ==
LOC: JER 21:52
DX: T46.5X1A Poisoning by other antihypertensive drugs, accidental (unintentional), initial encounter (principal)
CPT/HCPCS: 99283-25

== ENCOUNTER 2021-10-07 06:35 | Inpatient (IN) | payer BC, OTHER ==
[2021-10-07 07:29] VITALS: BMI 28.5
[2021-10-07] MEDS ORDERED: METOPROLOL TARTRATE 5 MG/5 ML VIAL IVPUSH ONE ×2 (08:13→09:07)
[2021-10-07] MEDS ORDERED: METOPROLOL TARTRATE 5 MG/5 ML VIAL ONE ×4 (08:20→19:27)
[2021-10-07 08:33] LABS: BASO % 0.3 % (0-2.0); EOS % 1.6 % (0-4.5); HEMOGLOBIN 13.6 GM/dL (11.7-16.9); LYMPH % 19.2 % (8-40); MCH 26.7 pg (25.7-33.7); MCHC 32.4 g/dl (32.0-35.9); MEAN CELL VOLUME 82.6 fl (80-96); MEAN PLT VOLUME 10.5 fl (7.5-11.1); NEUT % 70.9 % (42.8-82.8); PLATELET COUNT 136 10^3/uL (134-434); RBC 5.08 M/mm3 (4.00-5.60); RDW 17.4 % (11.9-15.9); WHITE BLOOD COUNT 5.6 K/mm3 (4.0-10.0)
[2021-10-07 08:40] LABS: INR 1.01 (0.83-1.09); PROTHROMBIN TIME (PATIENT) 11.6 SEC (9.7-13.0)
[2021-10-07 08:44] LABS: ACTIVATED PTT 34.4 SECONDS (25.2-36.5)
[2021-10-07] MEDS ORDERED: SODIUM CHLORIDE 0.9% 500 ML INFUS.BAG IV ONE (09:07)
[2021-10-07] MEDS: APIXABAN 5 MG TABLET PO SCH ×2 (09:20→23:05)
[2021-10-07 09:25] LABS: ALBUMIN 3.7 g/dl (3.4-5.0); BLOOD UREA NITROGEN 22.3 mg/dL (7-18); CALCIUM 9.2 mg/dL (8.5-10.1); MAGNESIUM 2.5 mg/dL (1.8-2.4)
[2021-10-07 09:28] LABS: CREATININE 1.1 mg/dL (0.55-1.3)
[2021-10-07 09:30] LABS: BILIRUBIN,TOTAL 0.6 mg/dL (0.2-1); TOT PROT 6.7 g/dl (6.4-8.2)
[2021-10-07] MEDS ORDERED: dilTIAZem HCL 50 MG/10 ML - 10 ML VIAL IVPUSH ONE (10:05)
[2021-10-07] MEDS ORDERED: dilTIAZem HCL 50 MG/10 ML - 10 ML VIAL ONE (10:34)
[2021-10-07] MEDS ORDERED: METOPROLOL TARTRATE 5 MG/5 ML VIAL IVPUSH PRN (11:40)
[2021-10-07] MEDS ORDERED: dilTIAZem HCL 50 MG/10 ML - 10 ML VIAL IVPUSH PRN ×2 (16:45→16:57)
[2021-10-07] MEDS ORDERED: dilTIAZem HCL 30 MG TABLET ONE (17:29)
[2021-10-07] MEDS: dilTIAZem HCL 30 MG TABLET PO SCH ×2 (17:30→19:10)
[2021-10-07] MEDS ORDERED: APIXABAN 5 MG TABLET ONE (22:27)
[2021-10-07] MEDS ORDERED: metoPROLOL SUCCINATE 25 MG TAB.SR.24H (FP) ONE (22:27)
[2021-10-08] MEDS: dilTIAZem HCL 30 MG TABLET PO SCH ×2 (01:55→06:00)
[2021-10-08 06:59] VITALS: TEMP 97.6
[2021-10-08] MEDS ORDERED: ATORVASTATIN CA 20 MG TABLET (FP) PO SCH (10:00)
[2021-10-08] MEDS: APIXABAN 5 MG TABLET PO SCH (10:20)
[2021-10-08 10:52] LABS: CALCIUM 8.7 mg/dL (8.5-10.1)
[2021-10-08 10:53] LABS: BLOOD UREA NITROGEN 26.8 mg/dL (7-18)
[2021-10-08 10:56] LABS: CREATININE 1.1 mg/dL (0.55-1.3)
[2021-10-08 11:49] VITALS: BP 146/86; PULSE 65
[2021-10-08] MEDS ORDERED: LISINOPRIL 20 MG TABLET PO ONE (11:54)
[2021-10-08] MEDS ORDERED: PATIENT'S OWN MEDICATION (NON-FORMULARY) (Lisinopril [Lisinopril] 40 MG Tablet) PO SCH (12:00)
[2021-10-08] MEDS ORDERED: LISINOPRIL 20 MG TABLET ONE (12:09)
== END 2021-10-08 12:16 | disposition home or self-care (01) | DRG 310 ==
LOC: JER 06:35 → JERBED 11:24
PROVIDERS: ADMIT Internal Medicine; ATTEND Internal Medicine
DX: I48.91 Unspecified atrial fibrillation (principal); I10 Essential (primary) hypertension; E78.5 Hyperlipidemia, unspecified; I25.10 Atherosclerotic heart disease of native coronary artery without angina pectoris; F17.200 Nicotine dependence, unspecified, uncomplicated
CPT/HCPCS: 36415; 71045-TC-FY; 80048; 80053; 83735; 84443; 84484; 85025; 85610; 85730; 93005; 93010; 99285-25; C9803-CS; U0003; U0005

== ENCOUNTER 2021-10-16 07:42 | Emergency (ER) | payer BC, OTHER ==
[2021-10-16 07:47] VITALS: TEMP 97.6; BMI 25.0
[2021-10-16] MEDS ORDERED: METOPROLOL TARTRATE 5 MG/5 ML VIAL IVPUSH ONE ×2 (07:58→08:41)
[2021-10-16] MEDS ORDERED: METOPROLOL TARTRATE 5 MG/5 ML VIAL ONE ×2 (08:09→08:48)
[2021-10-16] MEDS ORDERED: metoPROLOL SUCCINATE 25 MG TAB.SR.24H (FP) ONE (08:09)
[2021-10-16] MEDS ORDERED: SODIUM CHLORIDE 0.9% 500 ML INFUS.BAG IV ONE (09:00)
[2021-10-16 09:06] LABS: BASO % 0.4 % (0-2.0); EOS % 1.6 % (0-4.5); HEMATOCRIT 40.9 % (35.4-49); HEMOGLOBIN 13.7 GM/dL (11.7-16.9); MCH 27.2 pg (25.7-33.7); MCHC 33.4 g/dl (32.0-35.9); MEAN CELL VOLUME 81.5 fl (80-96); MEAN PLT VOLUME 10.1 fl (7.5-11.1); MONO % 7.6 % (3.8-10.2); NEUT % 68.4 % (42.8-82.8); PLATELET COUNT 124 10^3/uL (134-434); RBC 5.02 M/mm3 (4.00-5.60); RDW 17.4 % (11.9-15.9); WHITE BLOOD COUNT 5.2 K/mm3 (4.0-10.0)
[2021-10-16 09:18] LABS: CALCIUM 8.9 mg/dL (8.5-10.1)
[2021-10-16 09:19] LABS: ALBUMIN 3.5 g/dl (3.4-5.0); BLOOD UREA NITROGEN 25.3 mg/dL (7-18); MAGNESIUM 2.3 mg/dL (1.8-2.4)
[2021-10-16 09:22] LABS: CREATININE 1.1 mg/dL (0.55-1.3)
[2021-10-16 09:24] LABS: BILIRUBIN,TOTAL 0.4 mg/dL (0.2-1); TOT PROT 6.6 g/dl (6.4-8.2)
[2021-10-16 09:35] VITALS: BP 116/77; PULSE 60
== END 2021-10-16 11:46 | disposition home or self-care (01) ==
LOC: JER 07:42
PROC: 3E033GC Introduction of Other Therapeutic Substance into Peripheral Vein, Percutaneous Approach (ICD-10-PCS; principal; 2021-10-16)
DX: I48.91 Unspecified atrial fibrillation (principal)
CPT/HCPCS: 36415; 71045-TC-FY; 80053; 83690; 83735; 84443; 84484; 85025; 85730; 93005; 93010; 99283-25

== ENCOUNTER 2022-05-12 11:57 | Emergency (ER) | payer BC ==
[2022-05-12 12:13] VITALS: RESP 16; TEMP 98.6; BMI 28.5
[2022-05-12 15:45] LABS: BASO % 0.3 % (0-2.0); EOS % 1.5 % (0-4.5); HEMATOCRIT 43.4 % (35.4-49); HEMOGLOBIN 14.5 GM/dL (11.7-16.9); LYMPH % 18.2 % (8-40); MCH 30.2 pg (25.7-33.7); MCHC 33.4 g/dl (32.0-35.9); MEAN CELL VOLUME 90.4 fl (80-96); MEAN PLT VOLUME 10.5 fl (7.5-11.1); MONO % 6.5 % (3.8-10.2); NEUT % 73.5 % (42.8-82.8); PLATELET COUNT 139 10^3/uL (134-434); RDW 15.8 % (11.9-15.9); WHITE BLOOD COUNT 7.1 K/mm3 (4.0-10.0)
[2022-05-12 16:17] LABS: ALBUMIN 3.6 g/dl (3.4-5.0); BLOOD UREA NITROGEN 16.8 mg/dL (7-18); CALCIUM 8.7 mg/dL (8.5-10.1)
[2022-05-12 16:21] LABS: CREATININE 1.1 mg/dL (0.55-1.3)
[2022-05-12 16:22] LABS: BILIRUBIN,TOTAL 0.8 mg/dL (0.2-1); TOT PROT 6.6 g/dl (6.4-8.2)
[2022-05-12] MEDS ORDERED: ACETAMINOPHEN 500 MG TABLET (FP) PO ONE ×2 (16:34→16:39)
[2022-05-12] MEDS ORDERED: ACETAMINOPHEN 325 MG TABLET (FP) ONE (16:40)
[2022-05-12 16:45] VITALS: BP 138/82; PULSE 61
== END 2022-05-12 16:55 | disposition home or self-care (01) ==
LOC: JER 11:57
DX: E87.0 Hyperosmolality and hypernatremia (principal)
CPT/HCPCS: 36415; 80053; 85025; 99283-25

== ENCOUNTER 2022-07-02 15:54 | Observation (INO) | payer BC ==
[2022-07-02] MEDS ORDERED: ASPIRIN 81 MG CHEWABLE TABLETS PO ONE (16:47)
[2022-07-02] MEDS ORDERED: ASPIRIN 81 MG CHEWABLE TABLETS ONE (17:20)
[2022-07-02 18:23] LABS: BASO % 0.3 % (0-2.0); EOS % 1.9 % (0-4.5); HEMATOCRIT 41.4 % (35.4-49); HEMOGLOBIN 14.1 GM/dL (11.7-16.9); LYMPH % 18.5 % (8-40); MCH 31.2 pg (25.7-33.7); MCHC 34.2 g/dl (32.0-35.9); MEAN CELL VOLUME 91.4 fl (80-96); MEAN PLT VOLUME 10.5 fl (7.5-11.1); MONO % 7.4 % (3.8-10.2); NEUT % 71.9 % (42.8-82.8); PLATELET COUNT 140 10^3/uL (134-434); RBC 4.53 M/mm3 (4.00-5.60); RDW 13.8 % (11.9-15.9); WHITE BLOOD COUNT 7.2 K/mm3 (4.0-10.0)
[2022-07-02 18:30] LABS: INR 1.09 (0.83-1.09); PROTHROMBIN TIME (PATIENT) 12.6 SEC (9.7-13.0)
[2022-07-02 18:43] LABS: BLOOD UREA NITROGEN 20.3 mg/dL (7-18); CALCIUM 8.6 mg/dL (8.5-10.1)
[2022-07-02 18:44] LABS: ALBUMIN 3.4 g/dl (3.4-5.0)
[2022-07-02 18:46] LABS: CREATININE 1.3 mg/dL (0.55-1.3)
[2022-07-02 18:48] LABS: BILIRUBIN,TOTAL 0.4 mg/dL (0.2-1); TOT PROT 6.3 g/dl (6.4-8.2)
[2022-07-02] MEDS ORDERED: ATORVASTATIN CA 80 MG TABLET (FP) PO ONE (19:48)
[2022-07-02] MEDS ORDERED: APIXABAN 5 MG TABLET ONE (20:45)
[2022-07-02] MEDS ORDERED: ATORVASTATIN CA 80 MG TABLET (FP) ONE (20:45)
[2022-07-02] MEDS: APIXABAN 5 MG TABLET PO SCH (21:06)
[2022-07-02 21:52] LABS: URINE APPEARANCE CLEAR; URINE BILIRUBIN NEGATIVE (NEGATIVE); URINE COLOR YELLOW; URINE GLUCOSE (UA) NEGATIVE (NEGATIVE); URINE KETONE NEGATIVE (NEGATIVE); URINE LEUK ESTERASE NEGATIVE (NEGATIVE); URINE NITRITE NEGATIVE (NEGATIVE); URINE PROTEIN NEGATIVE (NEGATIVE)
[2022-07-02] MEDS ORDERED: HEPARIN NA (PORCINE) 5,000 UNITS/ML 1ML VIAL SQ SCH (22:00)
[2022-07-03 02:27] VITALS: BMI 28.3
[2022-07-03 07:53] LABS: BASO % 0.4 % (0-2.0); HEMATOCRIT 43.9 % (35.4-49); HEMOGLOBIN 14.9 GM/dL (11.7-16.9); LYMPH % 22.8 % (8-40); MCH 30.6 pg (25.7-33.7); MCHC 33.9 g/dl (32.0-35.9); MEAN CELL VOLUME 90.3 fl (80-96); MEAN PLT VOLUME 10.8 fl (7.5-11.1); MONO % 7.5 % (3.8-10.2); NEUT % 66.3 % (42.8-82.8); PLATELET COUNT 151 10^3/uL (134-434); RBC 4.87 M/mm3 (4.00-5.60)
[2022-07-03 08:22] LABS: ALBUMIN 3.5 g/dl (3.4-5.0); BLOOD UREA NITROGEN 15.8 mg/dL (7-18); CALCIUM 8.6 mg/dL (8.5-10.1); MAGNESIUM 2.3 mg/dL (1.8-2.4)
[2022-07-03 08:25] LABS: PHOSPHOROUS 2.7 mg/dL (2.5-4.9)
[2022-07-03 08:26] LABS: BILIRUBIN,TOTAL 0.7 mg/dL (0.2-1); TOT PROT 6.4 g/dl (6.4-8.2)
[2022-07-03 09:38] VITALS: RESP 20
[2022-07-03] MEDS ORDERED: LISINOPRIL 20 MG TABLET PO SCH (10:00)
[2022-07-03] MEDS: NICOTINE 14 MG/24 HOURS TOPICAL PATCH TD SCH ×2 (14:31→14:34)
[2022-07-03] MEDS: APIXABAN 5 MG TABLET PO SCH (14:32)
[2022-07-03 15:58] VITALS: BP 137/72; PULSE 60; TEMP 97.6
[2022-07-03] MEDS ORDERED: ATORVASTATIN CA 20 MG TABLET (FP) PO SCH (22:00)
== END 2022-07-03 17:35 | disposition home or self-care (01) ==
LOC: JER 15:54 → JERBED 20:18 → J4W 22:16
PROVIDERS: ADMIT Internal Medicine; ATTEND Internal Medicine
DX: I25.10 Atherosclerotic heart disease of native coronary artery without angina pectoris (principal); I48.91 Unspecified atrial fibrillation; I11.9 Hypertensive heart disease without heart failure; R07.9 Chest pain, unspecified; F17.210 Nicotine dependence, cigarettes, uncomplicated
CPT/HCPCS: 0241U-QW; 36415; 71045-TC-FY; 78452-TC; 80053; 80061; 81003; 83036; 83690; 83735; 84100; 84443; 84484; 85025; 85610; 85730; 93005; 93010; 93017; 93306-TC; 93880-TC; 99285-25; A9502; G0378

== ENCOUNTER 2023-01-14 13:48 | Emergency (ER) | payer BC ==
[2023-01-14 14:07] VITALS: PULSE 77; BMI 28.5
[2023-01-14] MEDS ORDERED: ALBUTEROL SO4 2.5/IPRATROPIUM 0.5 INH SOL 3 ML VIAL.NEB. NEB ONE ×2 (15:05→15:32)
[2023-01-14 15:43] LABS: BASO % 0.1 % (0-2.0); EOS % 0.1 % (0-4.5); HEMATOCRIT 42.9 % (35.4-49); HEMOGLOBIN 14.4 GM/dL (11.7-16.9); LYMPH % 9.6 % (8-40); MCH 30.9 pg (25.7-33.7); MCHC 33.4 g/dl (32.0-35.9); MEAN CELL VOLUME 92.5 fl (80-96); MEAN PLT VOLUME 9.8 fl (7.5-11.1); MONO % 3.6 % (3.8-10.2); NEUT % 86.6 % (42.8-82.8); PLATELET COUNT 184 10^3/uL (134-434); RBC 4.64 M/mm3 (4.00-5.60); RDW 13.3 % (11.9-15.9); WHITE BLOOD COUNT 10.4 K/mm3 (4.0-10.0)
[2023-01-14 15:50] LABS: VENOUS O2 SATURATION 59.6 % (70-80); VENOUS PCO2 43.8 mmHg (38-52); VENOUS PH 7.381 (7.310-7.410)
[2023-01-14 15:56] LABS: POTASSIUM 4.6 mmol/L (3.5-5.1)
[2023-01-14 15:58] LABS: ALBUMIN 3.9 g/dl (3.4-5.0); BLOOD UREA NITROGEN 25.9 mg/dL (7-18)
[2023-01-14 16:01] LABS: CREATININE 1.1 mg/dL (0.55-1.3)
[2023-01-14 16:03] LABS: BILIRUBIN,TOTAL 0.6 mg/dL (0.2-1)
[2023-01-14] MEDS ORDERED: ALBUTEROL SO4 HFA INHALER IH PRN (17:12)
[2023-01-14] MEDS ORDERED: ALBUTEROL SO4 HFA INHALER IH ONE (18:16)
[2023-01-14 18:26] VITALS: BP 135/80; RESP 17; TEMP 98
== END 2023-01-14 18:25 | disposition home or self-care (01) ==
LOC: JER 13:48
PROC: 3E0F7GC Introduction of Other Therapeutic Substance into Respiratory Tract, Via Natural or Artificial Opening (ICD-10-PCS; principal; 2023-01-14)
PROC: 3E0F7GC Introduction of Other Therapeutic Substance into Respiratory Tract, Via Natural or Artificial Opening (ICD-10-PCS; 2023-01-14)
DX: R06.02 Shortness of breath (principal); R09.89 Other specified symptoms and signs involving the circulatory and respiratory systems; R09.81 Nasal congestion; R05.9 Cough, unspecified; R42 Dizziness and giddiness; R07.9 Chest pain, unspecified; B34.9 Viral infection, unspecified; R11.0 Nausea; Z20.822 Contact with and (suspected) exposure to COVID-19
CPT/HCPCS: 0241U-QW; 36415; 71046-TC-FY; 80053; 82803; 84484; 85025; 93005; 93010; 99285-25

== ENCOUNTER 2023-09-23 10:34 | Observation (INO) | payer BC ==
[2023-09-23 12:24] LABS: BASO % 0.5 % (0-2.0); HEMATOCRIT 43.1 % (35.4-49); HEMOGLOBIN 14.9 GM/dL (11.7-16.9); LYMPH % 17.1 % (8-40); MCH 31.6 pg (25.7-33.7); MCHC 34.7 g/dl (32.0-35.9); MEAN PLT VOLUME 9.6 fl (7.5-11.1); MONO % 8.7 % (3.8-10.2); NEUT % 71.7 % (42.8-82.8); PLATELET COUNT 147 10^3/uL (134-434); RBC 4.74 M/mm3 (4.00-5.60); WHITE BLOOD COUNT 6.1 K/mm3 (4.0-10.0)
[2023-09-23 12:31] LABS: INR 0.98 (0.83-1.09); PROTHROMBIN TIME (PATIENT) 11.1 SEC (9.7-13.0)
[2023-09-23 12:34] LABS: ACTIVATED PTT 34.7 SECONDS (25.2-36.5)
[2023-09-23 12:51] LABS: POTASSIUM 4.1 mmol/L (3.5-5.1)
[2023-09-23 12:54] LABS: ALBUMIN 3.7 g/dl (3.4-5.0); MAGNESIUM 2.4 mg/dL (1.8-2.4)
[2023-09-23 12:58] LABS: BILIRUBIN,TOTAL 0.4 mg/dL (0.2-1)
[2023-09-23 12:59] LABS: TOT PROT 6.7 g/dl (6.4-8.2)
[2023-09-23] MEDS ORDERED: ALBUTEROL SO4 HFA INHALER IH PRN (15:40)
[2023-09-23] MEDS ORDERED: ATORVASTATIN CA 20 MG TABLET (FP) ONE (21:33)
[2023-09-23] MEDS ORDERED: APIXABAN 5 MG TABLET ONE (21:33)
[2023-09-23] MEDS: APIXABAN 5 MG TABLET PO SCH (21:38)
[2023-09-23] MEDS: ATORVASTATIN CA 20 MG TABLET (FP) PO SCH (21:38)
[2023-09-23 23:38] VITALS: BMI 29.8
[2023-09-24 01:57] VITALS: RESP 18
[2023-09-24 05:49] VITALS: PULSE 58
[2023-09-24] MEDS: LISINOPRIL 20 MG TABLET PO SCH (09:11)
[2023-09-24] MEDS: amLODIPine BESYLATE 5 MG TABLET (FP) PO SCH (09:11)
[2023-09-24 10:48] VITALS: BP 119/74; TEMP 97.9
== END 2023-09-24 12:36 | disposition home or self-care (01) ==
LOC: JER 10:34 → JERBED 14:50 → J4W 23:48
PROVIDERS: ADMIT Internal Medicine; ATTEND Internal Medicine
DX: I48.91 Unspecified atrial fibrillation (principal); I49.3 Ventricular premature depolarization; R53.1 Weakness; I10 Essential (primary) hypertension; E78.5 Hyperlipidemia, unspecified; Z86.73 Personal history of transient ischemic attack (TIA), and cerebral infarction without residual deficits; F17.210 Nicotine dependence, cigarettes, uncomplicated; F14.21 Cocaine dependence, in remission
CPT/HCPCS: 36415; 71046-TC-FY; 80053; 83735; 84443; 84484; 85025; 85610; 85730; 93005; 93010; 99285-25; G0378

== ENCOUNTER 2023-12-19 20:14 | Emergency (ER) | payer BC, OTHER ==
[2023-12-19 20:18] VITALS: TEMP 98.1; BMI 29.1
[2023-12-19 21:29] LABS: BASO % 0.3 % (0-2.0); EOS % 2.2 % (0-4.5); HEMATOCRIT 39.8 % (35.4-49); HEMOGLOBIN 13.8 GM/dL (11.7-16.9); LYMPH % 22.4 % (8-40); MCH 31.9 pg (25.7-33.7); MCHC 34.7 g/dl (32.0-35.9); MEAN PLT VOLUME 9.3 fl (7.5-11.1); MONO % 8.4 % (3.8-10.2); NEUT % 66.7 % (42.8-82.8); PLATELET COUNT 141 10^3/uL (134-434); RBC 4.32 M/mm3 (4.00-5.60); RDW 13.7 % (11.9-15.9)
[2023-12-19 21:35] LABS: INR 0.97 (0.83-1.09); PROTHROMBIN TIME (PATIENT) 11.2 SEC (9.7-13.0)
[2023-12-19] MEDS: ALBUTEROL SO4 2.5/IPRATROPIUM 0.5 INH SOL 3 ML VIAL.NEB. NEB ONE (21:35)
[2023-12-19] MEDS ORDERED: ALBUTEROL SO4 2.5/IPRATROPIUM 0.5 INH SOL 3 ML VIAL.NEB. NEB ONE (21:35)
[2023-12-19 21:38] LABS: ACTIVATED PTT 30.3 SECONDS (25.2-36.5)
[2023-12-19 21:47] LABS: POTASSIUM 3.7 mmol/L (3.5-5.1)
[2023-12-19 21:49] LABS: CALCIUM 8.4 mg/dL (8.5-10.1)
[2023-12-19 21:51] LABS: ALBUMIN 3.7 g/dl (3.4-5.0); BLOOD UREA NITROGEN 20.8 mg/dL (7-18)
[2023-12-19 21:53] LABS: CREATININE 1.2 mg/dL (0.55-1.3)
[2023-12-19 21:54] LABS: BILIRUBIN,TOTAL 0.4 mg/dL (0.2-1); TOT PROT 6.4 g/dl (6.4-8.2)
[2023-12-19 23:09] VITALS: BP 119/71; PULSE 70; RESP 13
== END 2023-12-20 00:29 | disposition home or self-care (01) ==
LOC: JER 20:14
PROC: 3E0F7GC Introduction of Other Therapeutic Substance into Respiratory Tract, Via Natural or Artificial Opening (ICD-10-PCS; principal; 2023-12-19)
DX: R06.02 Shortness of breath (principal); R42 Dizziness and giddiness; R09.81 Nasal congestion; T48.6X5A Adverse effect of antiasthmatics, initial encounter; Z20.822 Contact with and (suspected) exposure to COVID-19
CPT/HCPCS: 0241U-QW; 36415; 71046-TC-FY; 80053; 84484; 85025; 85610; 85730; 93005; 93010; 99285-25